=== PATIENT | male | born 1980 | race Caucasian/White ===

== ENCOUNTER 2017-03-31 19:28 | Emergency (ER) | payer OTHER ==
[2017-03-31 19:46] VITALS: PULSE 75; RESP 18
--- NOTE | 2017-03-31 20:34 | ED ---
Upper Extremity HPI - General Chief Complaint: Extremity Injury, Upper Stated Complaint: rt shoulder dislocation Time Seen by Provider: 03/31/17 20:13 Source: patient Mode of arrival: ambulatory Limitations: no limitations - History of Present Illness Initial Comments: Patient is a 37-year-old white male presenting to the emergency department with complaints of right shoulder pain after pulling weights at the [facility] at 7 PM last night. Patient states his shoulder pain originally started posteriorly in the shoulder blade but the pain has now moved anteriorly. Patient reports tingling to all his fingertips on the right hand. Patient rates pain a 7 out of 10, described as sharp, exacerbated with flexion. Patient reports previous dislocation and pinched nerve in right shoulder. No treatment prior to arrival. - Related Data Home Medications Medication Instructions Recorded Confirmed No Known Home Medications [No 03/31/17 03/31/17 Known Home Medications] Allergies Allergy/AdvReac Type Severity Reaction Status Date / Time prochlorperazine edisylate Allergy Unknown Verified 03/31/17 20:03 [From Compazine] prochlorperazine maleate Allergy Unknown Verified 03/31/17 20:03 [From Compazine] Review of Systems ROS Statement: Those systems with pertinent positive or pertinent negative responses have been documented in the HPI. ROS Other: All systems not noted in ROS Statement are negative. Past Medical History Past Medical History: No Reported History History of Any Multi-Drug Resistant Organisms: None Reported Past Surgical History: No Surgical Hx Reported, Hernia Repair, Orthopedic Surgery Additional Past Surgical History / Comment(s): Terrets syndrome Past Psychological History: No Psychological Hx Reported Smoking Status: Former smoker Past Alcohol Use History: None Reported Past Drug Use History: None Reported General Exam Limitations: no limitations General appearance: alert, in no apparent distress Head exam: Present: atraumatic, normocephalic, normal inspection Eye exam: Present: normal appearance, PERRL ENT exam: Present: normal exam, normal oropharynx, mucous membranes moist, normal external ear exam Neck exam: Present: normal inspection, full ROM. Absent: tenderness, meningismus, lymphadenopathy Respiratory exam: Present: normal lung sounds bilaterally. Absent: respiratory distress, wheezes, rales, rhonchi, stridor Cardiovascular Exam: Present: regular rate, normal rhythm, normal heart sounds. Absent: systolic murmur GI/Abdominal exam: Present: soft, normal bowel sounds. Absent: distended, tenderness, guarding, rebound, rigid Right Shoulder Exam: Present: normal inspection. Absent: full ROM (Decreased range of motion with extension.), tenderness, swelling, laceration, ecchymosis, tenderness over AC joint Upper Arm exam: Present: normal inspection, full ROM. Absent: tenderness, swelling Elbow exam: Present: normal inspection, full ROM. Absent: tenderness, swelling Forearm Wrist exam: Present: normal inspection, full ROM. Absent: tenderness, swelling Hand Wrist exam: Present: normal inspection, full ROM. Absent: tenderness, swelling Neuro motor exam: Present: wrist extension intact, thumb opposition intact, thumb IP flexion intact, thumb adduction intact, fingers 2-5 abduction intact Neurosensory exam: Present: 2-point discrimination, radial nerve intact, ulnar nerve intact, median nerve intact Vascular: Present: vascular compromise, normal capillary refill, radial pulse, brachial pulse, ulnar pulse Back exam: Present: normal inspection, full ROM. Absent: tenderness, CVA tenderness (R), CVA tenderness (L), paraspinal tenderness, vertebral tenderness Neurological exam: Present: alert, oriented X3, normal gait, other (No focal deficits noted) Psychiatric exam: Present: normal affect, normal mood Skin exam: Present: warm, dry, intact, normal color Course Vital Signs 03/31/17 19:44 Temperature 97.5 F L Pulse Rate 75 Respiratory 18 Rate Blood Pressure 136/82 O2 Sat by Pulse 96 Oximetry Medical Decision Making - Medical Decision Making Left shoulder sprain. X-ray of left shoulder negative for dislocation or fracture. Patient instructed to follow-up with orthopedic service if pain persists. Patient agrees with treatment plan. Discharge instructions and return parameters reviewed. - Radiology Data Radiology results: report reviewed X-ray right shoulder: No fracture or dislocation. Joint spaces are normal. No pathologic calcifications. As read by radiologist Dr. Peña. Disposition Clinical Impression: Strain of shoulder Disposition: HOME SELF-CARE Condition: Good Instructions: Shoulder Sprain (ED) Additional Instructions: Continue Motrin and Tylenol for pain. Follow-up with orthopedic surgeon if shoulder pain persists. Follow-up with primary care provider as directed. Please return to the emergency department with any new or worsening symptoms. Referrals: None,Stated [Primary Care Provider] - 1-2 days Naeem Brown MD [Medical Doctor] - 1-2 days (Follow-up if shoulder pain persists.) Time of Disposition: 21:12
[2017-03-31] MEDS: IBUPROFEN 800 MG TAB PO STA (20:41)
--- NOTE | 2017-03-31 21:01 | XR ---
EXAMINATION TYPE: XR shoulder complete RT DATE OF EXAM: 03/31/2017 COMPARISON: NONE HISTORY: Pain TECHNIQUE: 3 views FINDINGS: I see no fracture nor dislocation. Joint spaces are normal. There are no pathologic calcifi cations. IMPRESSION: Negative right shoulder exam.
[2017-03-31 21:35] VITALS: BP 135/84; TEMP 98.1
== END 2017-03-31 21:35 | disposition home or self-care (01) ==
LOC: EC 19:28
DX: S46.911A Strain of unspecified muscle, fascia and tendon at shoulder and upper arm level, right arm, initial encounter (principal); Z87.891 Personal history of nicotine dependence; Z88.8 Allergy status to other drugs, medicaments and biological substances; X50.1XXA Overexertion from prolonged static or awkward postures, initial encounter; Y92.89 Other specified places as the place of occurrence of the external cause; Y93.B2 Activity, push-ups, pull-ups, sit-ups
CPT/HCPCS: 99283

== ENCOUNTER 2020-05-16 13:02 | Emergency (ER) | payer BC ==
[2020-05-16 13:13] VITALS: RESP 16
--- NOTE | 2020-05-16 13:23 | ED ---
Anxiety HPI - General Chief Complaint: Anxiety Stated Complaint: back pain Time Seen by Provider: 05/16/20 13:15 Source: patient, RN notes reviewed, old records reviewed Mode of arrival: ambulatory - History of Present Illness Initial Comments: This is a 40-year-old male DF for evaluation of severe anxiety reaction, patient admits to significant anxiety which I homicidal or suicidal thoughts no recent drug or alcohol abuse. Patient does have history of opiate addiction pill addiction and recently stopped Suboxone patient having difficulty with withdrawal MD Complaint: anxiety, heart racing, shortness of breath -: days(s) Symptoms: palpitations, perioral numbness/tingling Place: home Previous History of Same: Yes Severity: moderate Quality: worsening Provoking factors: emotional stress, medication change Improves With: nothing Worsens With: nothing Associated symptoms: palpitations - Related Data Home Medications: Home Medications Medication Instructions Recorded Confirmed Ibuprofen [Motrin] 800 mg PO Q8H PRN 05/16/20 05/16/20 Testosterone Cypionate 100 mg IM Q14D 05/16/20 05/16/20 [Depo-Testosterone] Previous Rx's Medication Instructions Recorded LORazepam [Ativan] 1 mg PO TID PRN 3 Days #9 tab 05/16/20 Allergies/Adverse Reactions: Allergies Allergy/AdvReac Type Severity Reaction Status Date / Time prochlorperazine edisylate Allergy Unknown Verified 05/16/20 13:55 [From Compazine] prochlorperazine maleate Allergy Unknown Verified 05/16/20 13:55 [From Compazine] Review of Systems ROS Statement: Those systems with pertinent positive or pertinent negative responses have been documented in the HPI. ROS Other: All systems not noted in ROS Statement are negative. Past Medical History Past Medical History: No Reported History History of Any Multi-Drug Resistant Organisms: None Reported Past Surgical History: No Surgical Hx Reported, Hernia Repair, Orthopedic Surgery Additional Past Surgical History / Comment(s): Terrets syndrome Past Psychological History: No Psychological Hx Reported Past Alcohol Use History: None Reported Past Drug Use History: None Reported General Exam Limitations: no limitations General appearance: alert, in no apparent distress, anxious Head exam: Present: atraumatic, normocephalic, normal inspection Eye exam: Present: normal appearance, PERRL, EOMI. Absent: scleral icterus, conjunctival injection, periorbital swelling ENT exam: Present: normal exam, mucous membranes moist Neck exam: Present: normal inspection. Absent: tenderness, meningismus, lymphadenopathy Respiratory exam: Present: normal lung sounds bilaterally. Absent: respiratory distress, wheezes, rales, rhonchi, stridor Cardiovascular Exam: Present: regular rate, normal rhythm, normal heart sounds. Absent: systolic murmur, diastolic murmur, rubs, gallop, clicks GI/Abdominal exam: Present: soft, normal bowel sounds. Absent: distended, tenderness, guarding, rebound, rigid Extremities exam: Present: normal inspection, full ROM, normal capillary refill. Absent: tenderness, pedal edema, joint swelling, calf tenderness Back exam: Present: normal inspection Neurological exam: Present: alert, oriented X3, CN II-XII intact Psychiatric exam: Present: normal affect, normal mood Skin exam: Present: warm, dry, intact, normal color. Absent: rash Course Vital Signs 05/16/20 05/16/20 13:09 16:07 Temperature 98.1 F 97.8 F Pulse Rate 118 H 79 Respiratory 16 16 Rate Blood Pressure 149/88 148/79 O2 Sat by Pulse 97 98 Oximetry - Reevaluation(s) Reevaluation #1: Medical record is reviewed Symptoms are significantly improving, resolved Spoke with patient regarding symptoms and findings, questions answered Patient feels good for discharge home Medical Decision Making - Medical Decision Making 40 male DF for evaluation of Suboxone withdrawal and anxiety reaction secondary to this. Patient's not homicidal or suicidal, and comfortable improved symptoms here in the ER Disposition Clinical Impression: Acute anxiety Disposition: HOME SELF-CARE Condition: Good Instructions (If sedation given, give patient instructions): Generalized Anxiety Disorder (ED) Prescriptions: LORazepam [Ativan] 1 mg PO TID PRN 3 Days #9 tab PRN Reason: Agitation Is patient prescribed a controlled substance at d/c from ED?: Yes When asked, does pt state using other controlled substances?: No If prescribed controlled substance>3 days was MAPS reviewed?: Prescribed <3 Days If opioid is for acute pain is fill amount 7 days or less?: No If Rx opioid, was Start Talking consent form obtained?: No Referrals: Tony Aguilar MD [Primary Care Provider] - 1-2 days
[2020-05-16] MEDS ORDERED: diazePAM 5 MG TAB PO STA ×2 (13:33→13:48)
[2020-05-16] MEDS ORDERED: ONDANSETRON ODT 4 MG TAB PO STA (13:33)
[2020-05-16] MEDS ORDERED: cloNIDine 0.3 MG/24HR PATCH TRANSDERM STA (13:33)
[2020-05-16] MEDS ORDERED: LORazepam 1 MG TAB PO STA ×2 (15:00→15:46)
[2020-05-16 16:08] VITALS: BP 148/79; PULSE 79; TEMP 97.8
== END 2020-05-16 16:07 | disposition home or self-care (01) ==
LOC: EC 13:02
DX: F41.9 Anxiety disorder, unspecified (principal); Z88.8 Allergy status to other drugs, medicaments and biological substances
CPT/HCPCS: 99283

== ENCOUNTER 2021-04-21 14:46 | Inpatient (IN) | payer BC, OTHER ==
--- NOTE | 2021-04-21 15:17 | ED ---
General Adult HPI - General Stated complaint: EPS eval Time Seen by Provider: 04/21/21 14:46 Source: patient, RN notes reviewed, old records reviewed - History of Present Illness Initial comments: This is a 41-year-old male is brought in by the Electronic Organ Mechanic because the mother is filling out a petition the patient because she states he is making comments about him wanting to kill himself. Patient is also very paranoid according to the mother's petition. Patient himself currently denies wanting to harm himself but he does seem to be obsessed with getting a red mud thickener operator and proving that his is cheating on him. Patient keeps making mention that he has every and on his phone. Patient is asking to please obstacle few his phone so that it can make sound are him. Patient denies any drug or alcohol use. also wrote on the petition that the patient has been threatening to kill himself with a hunting knife. - Related Data Home Medications Medication Instructions Recorded Confirmed HYDROcodone/APAP 5-325MG [Ivor 1 tab PO TID PRN 04/21/21 04/21/21 5-325] Allergies Allergy/AdvReac Type Severity Reaction Status Date / Time prochlorperazine edisylate Allergy Unknown Verified 04/21/21 16:24 [From Compazine] prochlorperazine maleate Allergy Unknown Verified 04/21/21 16:24 [From Compazine] Review of Systems ROS Statement: Those systems with pertinent positive or pertinent negative responses have been documented in the HPI. ROS Other: All systems not noted in ROS Statement are negative. Past Medical History Past Medical History: No Reported History History of Any Multi-Drug Resistant Organisms: None Reported Past Surgical History: No Surgical Hx Reported, Hernia Repair, Orthopedic Surgery Additional Past Surgical History / Comment(s): Terrets syndrome Past Psychological History: No Psychological Hx Reported Past Alcohol Use History: None Reported Past Drug Use History: None Reported General Exam - General Exam Comments Initial Comments: GENERAL: Patient is well-developed and well-nourished. Patient is nontoxic and well- hydrated and is in no acute distress. Patient is upset because the clearance center manager brought him here but aside from that he is cooperative ENT: Neck is soft and supple. No significant lymphadenopathy is noted. Oropharynx is clear. Moist mucous membranes. Neck has full range of motion without eliciting any pain. There is no thyroid enlargement and no masses were felt. EYES: The sclera were anicteric and conjunctiva were pink and moist. Extraocular movements were intact and pupils were equal round and reactive to light. Eyelids were unremarkable. PULMONARY: Unlabored respirations. Good breath sounds bilaterally. No audible rales rhonchi or wheezing was noted. CARDIOVASCULAR: There is a regular rate and rhythm without any murmurs gallops or rubs. ABDOMEN: Soft and nontender with normal bowel sounds. SKIN: Skin is clear with no lesions or rashes and otherwise unremarkable. NEUROLOGIC: Patient is alert and oriented x3. Cranial nerves II through XII are grossly intact. Motor and sensory are also intact. Normal speech, volume and content. Symmetrical smile. MUSCULOSKELETAL: Normal extremities with adequate strength and full range of motion. LYMPHATICS: No significant lymphadenopathy is noted PSYCHIATRIC: Patient does seem to be obsessed with getting a red mud thickener operator and getting his phone so he can prove with video evidence that he has never said any of these things and that his is cheating on him. Patient denies suicidal or homicidal ideations. Patient denies any drug use. Course Vital Signs 04/21/21 14:59 Temperature 98.7 F Pulse Rate 107 H Respiratory 20 Rate Blood Pressure 177/106 O2 Sat by Pulse 98 Oximetry Medical Decision Making - Medical Decision Making EPS evaluated the patient and determined the patient needed to be admitted I filled out a clinical certification at the patient admitted. Disposition Clinical Impression: Psychosis, Suicidal ideation Disposition: ADMITTED IP TO THIS [facility] Referrals: Tony Aguilar MD [Primary Care Provider] - 1-2 days Time of Disposition: 17:26
[2021-04-21] MEDS ORDERED: MAG HYDROX/AL HYDROX/SIMETH 30 ML CUP PO PRN (18:03)
[2021-04-21] MEDS ORDERED: MAGNESIUM HYDROXIDE 2,400 MG/10 ML CUP PO PRN (18:03)
[2021-04-21] MEDS ORDERED: LORazepam 2 MG/ML INJ IM PRN (18:04)
[2021-04-21] MEDS ORDERED: HALOPERIDOL LACTATE 5 MG/ML 1 ML VIAL IM PRN (18:05)
[2021-04-21] MEDS ORDERED: haloperidoL 5 MG TAB PO PRN (18:05)
[2021-04-21] MEDS: LORazepam 1 MG TAB PO PRN (18:20)
[2021-04-21] MEDS: NICOTINE 14MG/24HR PATCH TRANSDERM SCH (18:26)
[2021-04-22] MEDS: LORazepam 1 MG TAB PO PRN ×3 (05:55→22:33)
[2021-04-22] MEDS: ACETAMINOPHEN TAB 325 MG TAB PO PRN ×3 (05:55→20:23)
[2021-04-22] MEDS: NICOTINE 14MG/24HR PATCH TRANSDERM SCH (08:40)
--- NOTE | 2021-04-22 11:43 | P.HP ---
Psychiatric H&P - . H&P Date: 04/22/21 History & Physical: Allergies Allergy/AdvReac Type Severity Reaction Status Date / Time prochlorperazine edisylate Allergy Unknown Verified 04/21/21 18:45 From Compazine prochlorperazine maleate Allergy Unknown Verified 04/21/21 18:45 From Compazine Vital Signs Temp 97.7 F 04/22/21 06:41 Pulse 107 H 04/22/21 06:41 Resp 16 04/22/21 06:41 BP 131/102 04/22/21 06:41 Pulse Ox 98 04/21/21 14:59 Intake & Output 04/21/21 04/22/21 04/22/21 18:59 06:59 18:59 Weight 102.4 kg 04/22/21 11:33 IDENTIFYING DATA: Patient is a 41-year-old male who is currently and staying at a nearby hotel and has 2 kids. He currently works for a [employer] company. HPI: Patient presented to the hospital yesterday on petition by his mother. According to petition mother had claimed that "he believes people are spying on him. People are to get him. He told me today that if I didn't believe him she was going to kill himself. He thinks I am having an affair with people at work and has threatened to kill himself with a hunting knife and a couple days ago said he would end it all because he couldn't take anymore". Patient was seen wandering the hallways and agreeable to speak to senior mortgage underwriter in the office. 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 He claims the several weeks ago he noticed "something strange" on a security camera and claims that he believes that his has been cheating on him with his patton who is living in his basement. He states that she goes into a room and shut her phone and then comes out of the room and has been denying it. He claims that he believes this is true and has contacted a research and insights executive sent and the foot age. He was very guarded and secretive about his plan. He states that he left his house with his 7 days ago and has been living in a hotel. He claims that his life is "putting me in here so she can win and the divorce". He is denying any depression at this time admits to some anxiety. He denies any racing thoughts. He states that he is sleeping approximately 6-7 hours a night. He did not give a urine drug screen however did claim that he was using some drugs several days ago however does not know what he used. Patient denies any suicidal or homicidal ideations intent or plan. At this time patient denies any auditory or visual hallucinations. Patient denies any flight of ideas racing thoughts and increased in goal directed behavior. PAST PSYCHIATRIC HISTORY: Patient states that he has no significant psychiatric history. Patient denies being on any psychiatric medications. Patient denies any previous psychiatric hospitalizations. Patient denies any psychiatric outpatient follow-up. Patient denies any history of suicide attempts in the past. PMH: Tourette syndrome ALLERGIES: as per EMR CHEMICAL DEPENDENCY HISTORY: as per HPI FAMILY PSYCHIATRIC/SUBSTANCE USE HISTORY: denies SOCIAL HISTORY: Patient was born and raised in [facility]. He states that he completed high school. He claims they deny any legal history. He states that he currently is staying at a hotel however is and has 2 kids. He currently works at a [employer]. MENTAL STATUS EXAM: General Appearance: Patient appears to be well-built stated age is alert, suspicious, argumentative. Patient appears to have poor hygiene and grooming. Behavior: Patient is seated without any agitated behavior. And irritable and argumentative. Paranoid Speech: Patient's speech is fluent and nonpressured. Mood/Affect: Patient reports their mood is ok, affect is congruent and constricted. Suicidality/Homicidality: Patient denies having any homicidal ideation intent or plan. Denies any suicidal ideations intent or plan Perceptions: Patient denies any visual hallucinations and denies any auditory hallucinations Though content/process: Patient is preoccupied with his cheating on him. Minimizing his symptoms. Endorsing significant paranoia. Memory and concentration: AOX3, grossly intact for the purposes of this session. Can spell "WORLD" backwards Judgment and insight: poor STRENGTHS/WEAKNESSES: strength is that patient is resilient. Weakness is that patient has poor judgment and is impulsive INTELLECT: average IMPRESSIONS: Psychosis unspecified, rule out secondary to substance use versus delusional disorder nicotine dependence PLAN: -Patient is admitted under involuntary status to [facility] for stabilization of psychiatric symptoms and safety. Patient has not signed adult voluntary form and medication consent and is placed in patient's chart. A second certification was completed and along with petition will be filed for court. -Medications : Will start patient on Risperdal 0.5 mg twice a day for psychosis/paranoia. -Ativan and Haldol PRN for agitation/aggression -Patient was counselled on substance abuse and desired to cut back on use -Patient was informed of the risks, benefits and side effects of the medication and patient verbally consented to taking the medications. Patient signed med consent form and was placed in chart. -Internal Medicine consult to perform medical evaluation and physical. -NRT - nicotine patch -SW on board for discharge planning. Encourage patient to participate in groups to work on coping skills. Will await deferral and court date. 04/22/21 11:43
[2021-04-22] MEDS: risperiDONE 0.5 MG TAB PO SCH ×2 (12:57→20:23)
[2021-04-22] MEDS: HYDROcodone/APAP 5-325MG 1 EACH TAB PO PRN (22:34)
[2021-04-22 22:57] LABS: Amorphous Sediment,Urine Few /hpf; Appearance,Urine Cloudy (Clear); Bilirubin,Urine Negative (Negative); Blood,Urine Negative (Negative); Calcium Oxalate Crystals,Urine Moderate /hpf; Color,Urine Yellow; Glucose,Urine (UA) Negative (Negative); Hyaline Casts,Urine 2 /lpf (0-2); Ketones,Urine Negative (Negative); Leukocyte Esterase,Urine Negative (Negative); Mucus,Urine Many /hpf; Nitrite,Urine Negative (Negative); Protein,Urine 1+ (Negative); RBC,Urine 2 /hpf (0-5); Specific Gravity,Urine 1.024 (1.001-1.035); WBC,Urine 8 /hpf (0-5)
[2021-04-22 23:00] LABS: Amphetamine Screen,Urine Detected (NotDetected); Barbiturate Screen,Urine Not Detected (NotDetected); Benzodiazepines Screen,Urine Detected (NotDetected); Cocaine Screen,Urine Not Detected (NotDetected); Methadone Screen, Urine Not Detected (NotDetected); Opiate Screen,Urine Not Detected (NotDetected); Oxycodone Screen, Urine Not Detected (NotDetected); Phencyclidine Screen,Urine Not Detected (NotDetected); Tricyclic Antidepressant,Urine Not Detected (NotDetected); Urn Cannabinoid Scrn Detected (NotDetected)
[2021-04-23] MEDS: risperiDONE 0.5 MG TAB PO SCH (08:00)
[2021-04-23] MEDS: NICOTINE 14MG/24HR PATCH TRANSDERM SCH (08:00)
[2021-04-23] MEDS: HYDROcodone/APAP 5-325MG 1 EACH TAB PO PRN ×2 (08:03→16:07)
[2021-04-23] MEDS: LORazepam 1 MG TAB PO PRN ×3 (08:03→21:06)
--- NOTE | 2021-04-23 09:51 | P.PN ---
Progress Note - Text Progress Note Date: 04/23/21 Interval History: Patient was seen lying in his bed this morning and was directable and agreeable to speak with music writer in the office. He appears to be mildly less paranoid today however continues to have very poor insight into his condition. He states that he did take his medications yesterday and feels "not well". He denies any depression or anxiety today. He claims that he's been speaking of his life. He was demanding discharge today and claims that "I'm in a drop everything if he just let me go". He states that he wants to talk to his cousin who is an FBI agent over the phone. He states that the phones are not working and appeared to be frustrated. He continues to have a poor impulse control. Security Management Specialist reviewed the UDS which was positive for benzodiazepines, methamphetamine and marijuana and patient denied using all of them except for methamphetamines and claims that he only used it twice with his friend. He states that his friend injected him with it. States that he is able to sleep throughout the night. At this time patient denies any suicidal or homical ideations, intent or plan. Patient denies any auditory, visual hallucinations. Patient denies any side effects from the medications and has been compliant with meds. Mental Status Exam: General Appearance: Patient appears to be well-built stated age is alert, suspicious, argumentative. Patient appears to have poor hygiene and grooming. Behavior: Patient is seated without any agitated behavior. irritable and argumentative. Paranoid, improving mildly Speech: Patient's speech is fluent and nonpressured. Mood/Affect: Patient reports their mood is ok, affect is incongruent and constricted. Suicidality/Homicidality: Patient denies having any homicidal ideation intent or plan. Denies any suicidal ideations intent or plan Perceptions: Patient denies any visual hallucinations and denies any auditory hallucinations Though content/process: Patient is preoccupied with his cheating on him. Minimizing his symptoms. Endorsing significant paranoia. Focused on discharge. Memory and concentration: AOX3, grossly intact for the purposes of this session Judgment and insight: poor, improving mildly Assessment Psychosis unspecified, rule out secondary to substance use versus delusional disorder nicotine dependence Plan: -Patient continues to meet criteria for inpatient psychiatric admission for symptom stabilization and safety. Patient has not signed adult voluntary form and medication consent and was placed in patient's chart. -Medications: Discontinued Risperdal and switched to paliperidone 3 mg daily at bedtime for psychosis/paranoia. -When necessary Ativan and Haldol for agitation/aggression. -NRT - nicotine patch -SW on board for discharge planning. Encouraged the patient to participate in milieu. Currently awaiting deferral with prosecuting attorney and court date.
[2021-04-23 13:11] LABS: Basophils # (A) 0.1 k/uL (0-0.2); Basophils % (A) 0 %; Eosinophils # (A) 0.1 k/uL (0-0.7); Eosinophils % (A) 1 %; HCT 46.5 % (39.0-53.0); HGB 16.5 gm/dL (13.0-17.5); Lymphocytes # (A) 1.3 k/uL (1.0-4.8); Lymphocytes % (A) 12 %; MCH 31.3 pg (25.0-35.0); MCHC 35.4 g/dL (31.0-37.0); MCV 88.3 fL (80.0-100.0); Mean Platelet Volume 7.5; Monocytes # (A) 0.5 k/uL (0-1.0); Monocytes % (A) 4 %; Neutrophils # (A) 9.4 k/uL (1.3-7.7); Neutrophils % (A) 82 %; Platelet Count 200 k/uL (150-450); RBC 5.27 m/uL (4.30-5.90); RDW 12.2 % (11.5-15.5); WBC 11.5 k/uL (3.8-10.6)
[2021-04-23 13:23] LABS: ALT 29 U/L (4-49); AST 22 U/L (17-59); African American GFR (CKD) >90 (>60 ml/min/1.73 sqM); Albumin 4.3 g/dL (3.5-5.0); Alkaline Phosphatase 99 U/L (38-126); Anion Gap 8 mmol/L; Blood Urea Nitrogen 17 mg/dL (9-20); Calcium 9.3 mg/dL (8.4-10.2); Carbon Dioxide 26 mmol/L (22-30); Chloride 105 mmol/L (98-107); Glucose 110 mg/dL (74-99); Lipase 126 U/L (23-300); Non-African American GFR(CKD) >90 (>60 ml/min/1.73 sqM); Potassium 4.2 mmol/L (3.5-5.1); Sodium 139 mmol/L (137-145); Total Bilirubin 1.3 mg/dL (0.2-1.3); Total Protein 6.9 g/dL (6.3-8.2)
[2021-04-23] MEDS: ACETAMINOPHEN TAB 325 MG TAB PO PRN (13:50)
--- NOTE | 2021-04-23 16:45 | CT ---
EXAMINATION TYPE: CT abdomen pelvis w con DATE OF EXAM: 04/23/2021 COMPARISON: None HISTORY: Abdominal/back pain CT DLP: 1412.20 mGycm Automated exposure control for dose reduction was used. CONTRAST: Performed with IV Contrast, patient injected with 100 mL of Isovue 300. Images obtained from the diaphragm to the floor the pelvis with IV contrast. Lung bases are clear of infiltrate. There is no pleural effusion. Heart size is normal. There is no p ericardial effusion. Liver spleen pancreas stomach gallbladder appear intact. The bile ducts are not dilated. There is no adrenal mass. Kidneys show satisfactory contrast opacification. There is no hydronephrosi s. Ureters are not dilated. Delayed images show normal renal excretion. There is no retroperitoneal a denopathy. Appendix is posterior and appears normal. The bladder distends smoothly. There is no ingui nal hernia. There is no free fluid in the pelvis. There are multiple sigmoid diverticula. There is fat stranding and minimal fluid in the left paracoli c gutter. There is no evidence of a bowel obstruction. There is no sign of free air. There is no ascites. The lumbar vertebra have normal alignment. There is narrowing of L5-S1 disc space. The posterior [place] ents are intact. There is no compression fracture. The bony pelvis is intact. The hip joints are inta ct. There is no hip dysplasia. IMPRESSION: Multiple sigmoid diverticula. Fat stranding around the proximal sigmoid colon consistent with some di verticulitis. No abscess drainable fluid collection. Normal appendix.
[2021-04-23] MEDS ORDERED: PALIPERIDONE 3 MG TAB.ER.24 PO SCH (21:00)
[2021-04-23] MEDS: CIPROFLOXACIN HCL 500 MG TAB PO SCH (21:04)
[2021-04-23] MEDS: metroNIDAZOLE 500 MG TAB PO SCH (21:04)
--- NOTE | 2021-04-23 23:56 | P.MDCNMH ---
History of Present Illness H&P Date: 04/23/21 Chief Complaint: Abdominal pain 41-year-old with no significant past medical history Patient petitioned due to bizarre behavior and delusional thought, he was accusing his cheating on him, he left the house and she was worried that he is becoming suicidal so petitioned him for evaluation He denies any suicidal thoughts he does admit to feeling sad that his 's hermila ating on him and he wants to and the marriage he denies the urge to hurt anyone or hurt himself at this time He also was complaining of left lower quadrant abdominal pain yesterday was the peak when the pain was 10 out of 10 in severity he denies any urinary symptoms he denies any nausea vomiting fevers or chills but does admit to loose stools he denies any lipid bowel movement Computed tomography scan of the abdomen reported to me that showed acute diverticulitis, unable to access electronic report at this time Blood work did show leukocytosis Review of Systems Pertinent positives as noted in HPI. 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 Past Anesthesia/Blood Transfusion Reactions: No Reported Reaction Past Psychological History: No Psychological Hx Reported Smoking Status: Never smoker Past Alcohol Use History: None Reported Past Drug Use History: None Reported - Past Family History Family Family Medical History: No Reported History Medications and Allergies Home Medications Medication Instructions Recorded Confirmed Type HYDROcodone/APAP 5-325MG [[place] 1 tab PO TID PRN 04/21/21 04/21/21 History 5-325] Allergies Allergy/AdvReac Type Severity Reaction Status Date / Time prochlorperazine edisylate Allergy Unknown Verified 04/21/21 18:45 [From Compazine] prochlorperazine maleate Allergy Unknown Verified 04/21/21 18:45 [From Compazine] Physical Exam Vitals: Vital Signs Pulse Resp BP 04/23/21 13:50 108 H 135/77 04/23/21 12:25 113 H 18 137/67 04/23/21 08:00 110 H 138/92 Constitutional: No acute distress, conversant, pleasant Eyes: Anicteric sclerae, moist conjunctiva, Pupils equal round reactive to light ENMT: NC/AT Oropharynx clear, no erythema, or exudates Neck: Supple, FROM, no masses, or JVD No carotid bruits No thyromegaly Lungs: Clear to auscultation Clear to percussion Normal respiratory effort, no accessory muscle use Cardiovascular: Heart regular in rate and rhythm, No murmurs, gallops, or rubs No peripheral edema Abdominal: Soft Discomfort to palpation of the lower abdomen and left lower quadrant, no guarding, rebound or rigidity Abdomen moving with respiration Normoactive bowel sounds No hepatomegaly, No splenomegaly No palpable mass No abdominal wall hernia noted Skin: Normal temperature, tone, texture, turgor No induration No subcutaneous nodules No rash, lesions No ulcers Extremities: No digital cyanosis No clubbing Pedal pulses intact and symmetrical Radial pulses intact and symmetrical No calf tenderness Psychiatric: Alert and oriented to person, place and time Appropriate affect fair judgement Neuro Muscles Strength 5/5 in all 4 extremities Sensation to light touch grossly present throughout Cranial nerves II-XII grossly intact No focal sensory deficits Lymphatics: no palpable cervical or supraclavicular , or inguinal lymph nodes Cranial Nerve Examination - Cranial Nerves Cranial Nerve II- Optic: Intact Cranial Nerve III- Oculomotor: Intact Cranial Nerve IV- Trochlear: Intact Cranial Nerve V- Trigeminal: Intact Cranial Nerve - Abducens: Intact Cranial Nerve VII- Facial: Intact Cranial Nerve VIII- Auditory: Intact Cranial Nerve IX- Glossopharyngeal: Intact Cranial Nerve X- Vagus: Intact Cranial Nerve XI- Accessory: Intact Cranial Nerve XII- Hypoglossal: Intact Results CBC & Chem 7: 04/23/21 12:54 04/23/21 12:54 Labs: Abnormal Lab Results - Last 24 Hours (Table) 04/23/21 04/23/21 Range/Units 12:54 12:54 WBC 11.5 H (3.8-10.6) k/uL Neutrophils # 9.4 H (1.3-7.7) k/uL Glucose 110 H (74-99) mg/dL Assessment and Plan Assessment: Acute diverticulitis Patient started on Cipro and Flagyl Tylenol for fever Pain control with [place] Full liquid diet as tolerated Continue to monitor closely Continue care at mental health unit at this time Substance abuse Delusional thoughts Management per psych Thank you for allowing us to participate in the care of this patient. We will follow peripherally. Do not hesitate to contact us with questions. Someone can be reached from the [facility] hospitalist group at all hours of the day at [phone].
[2021-04-24 00:46] VITALS: BP 127/84; PULSE 107; RESP 16; TEMP 97.5
[2021-04-24] MEDS: HYDROcodone/APAP 5-325MG 1 EACH TAB PO PRN ×2 (02:53→11:49)
[2021-04-24] MEDS: LORazepam 1 MG TAB PO PRN (02:53)
[2021-04-24] MEDS: CIPROFLOXACIN HCL 500 MG TAB PO SCH (08:30)
[2021-04-24] MEDS: NICOTINE 14MG/24HR PATCH TRANSDERM SCH (08:30)
[2021-04-24] MEDS: metroNIDAZOLE 500 MG TAB PO SCH (08:30)
[2021-04-24] MEDS: ACETAMINOPHEN TAB 325 MG TAB PO PRN (08:31)
[2021-04-24] MEDS ORDERED: LORazepam 1 MG TAB PO PRN (10:07)
--- NOTE | 2021-04-24 13:55 | P.DS ---
Providers Date of admission: 04/21/21 17:34 Expected date of discharge: 04/24/21 Attending physician: Timi Hilario MD Consults: 04/21/21 18:03 Consult Physician Routine Consulting Provider: [facility] Consult Reason/Comments: H&P and medical Do you want consulting provider notified?: Already Contacted - Discharge Diagnosis(es) (1) Unspecified psychosis Current Visit: Yes Status: Acute Priority: High (2) Nicotine dependence Current Visit: Yes Status: Acute Priority: Low (3) Methamphetamine abuse Current Visit: Yes Status: Acute Priority: High (4) Cannabis use disorder, mild, abuse Current Visit: Yes Status: Acute Priority: High Hospital Course: Admission HPI: Admission note was completed by proposal lead writer] "Patient is a 41-year-old male who is currently and staying at a nearby hotel and has 2 kids. He currently works for a [employer] company. Patient presented to the hospital yesterday on petition by his mother. According to petition mother had claimed that "he believes people are spying on him. People are to get him. He told me today that if I didn't believe him she was going to kill himself. He thinks I am having an affair with people at work and has threatened to kill himself with a hunting knife and a couple days ago said he would end it all because he couldn't take anymore". Patient was seen wandering the hallways and agreeable to speak to proposal lead writer in the office. 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 He claims the several weeks ago he noticed "something strange" on a security camera and claims that he believes that his has been cheating on him with his patton who is living in his basement. He states that she goes into a room and shut her phone and then comes out of the room and has been denying it. He claims that he believes this is true and has contacted a superintendent meters sent and the foot age. He was very guarded and secretive about his plan. He states that he left his house with his 7 days ago and has been living in a hotel. He claims that his life is "putting me in here so she can win and the divorce". He is denying any depression at this time admits to some anxiety. He denies any racing thoughts. He states that he is sleeping approximately 6-7 hours a night. He did not give a urine drug screen however did claim that he was using some drugs several days ago however does not know what he used. Patient denies any suicidal or homicidal ideations intent or plan. At this time patient denies any auditory or visual hallucinations. Patient denies any flight of ideas racing thoughts and increased in goal directed behavior." Hospital course: Upon admission to the unit patient was initially delusional, paranoid and bizarrend others however with time and treatment he got along well with other patients on the unit and followed unit protocol. Patient was compliant with the medications and denied any side effects throughout hospital course. Patient was started on paliperidone 3 mg daily at bedtime for psychosis/paranoia. Patient spoke of [hi] stressors and engaged in therapy both group and individual. Patient was also seen by medical team for history and physical exam. Patient had a computed tomography scan performed of his abdomen and pelvis on 04/23 for acute pain and was found to have evidence of diverticulitis. Medicine had evaluated patient and started him on ciprofloxacin and Flagyl for treatment. Throughout the course of the hospitalization patient gradually improved with regards to [mood, psychosis/paranoia, anxiety], sleep and became more future oriented with improved insight and judgment. On the day of discharge patient denied any suicidal or homicidal ideations intent or plan denied any auditory or visual hallucinations. Patient endorsed wanting to live for [his health and family.] The patient denied any access to guns or weapons. Patient denied any paranoia and did not endorse any delusions. Patient does have a significant history of substance abuse [and] was counseled on abstaining from all substances including alcohol and marijuana. [Patient was offered however declined inpatient substance-abuse rehab.] care. Prior to discharge, proposal lead writer spoke with patient's mother Susanna over the phone at [phone] expressed her concerns about patient's substance use and his mental health condition and questions and concerns were addressed and answered about his treatment plan and they deferral process and he will be staying with her upon discharge. Confirmed that they are now guns or weapons in the house. Industrial Automation Specialist also spoke with patient's Izabela [phone] to states that she is concerned about patient's well-being and substance use and questions and concerns were addressed and answered. Mental status exam: General Appearance: Patient appears to be well-built, stated age is alert, pleasant, and cooperative. Patient is in no acute distress and has improved hygiene and grooming Behavior: Patient is calmly seated without any agitated behavior. Speech: Patient's speech is fluent and nonpressured. Mood/Affect: Patient reports their mood is "ok", affect is congruent Suicidality/Homicidality: Patient denies having any suicidal or homicidal ideation intent or plan. Perceptions: Patient denies any auditory or visual hallucinations. Though content/process: There is no evidence of any delusional thought content and thought process is linear and goal-directed. Memory and concentration: AOX3, grossly intact for the purposes of this session. Can spell "WORLD" backwards correctly. Judgment and insight: [chronically poor, however has] improved with guarded prognosis Impression: Psychosis unspecified, likely secondary to polysubstance abuse Methamphetamine abuse Cannabis use disorder Nicotine dependence Plan: -Continue with discharge today as patient has improved and stabilized psychiatrically and is not currently an imminent threat to [himself] and/or others. [Patient will remain at chronically elevated risk for harm to self and/or others due to his impulsivity and polysubstance abuse.] -Continue medications: Paliperidone by mouth 3 mg daily at bedtime for psycho sis/paranoia. This can be examined by his outpatient psychiatrist to see if it can be titrated down/off. -Patient was counseled on the need for medication compliance and appropriate follow-up at mental health and also primary care for medical issues. Patient verbalized understanding and agreed. -Social work to [arrange for and conduct family meeting to ensure safety upon discharge and answer any questions/concerns.] Industrial Automation Specialist spoke with patient's and mother over the phone prior to discharge, see above for details. Social work also to arrange for patients follow up appointments [with [facility]] for psychiatric care along with follow up with primary care provider. -Patient counseled on abstaining from recreational drugs and marijuana and alcohol. Was informed/educated on the adverse effects on their physical and mental health. [Patient verbally agreed and understood]. [Patient was offered substance abuse treatment however declined at this time.] -Patient was instructed to return to the hospital or seek immediate medical care if their psychiatric or medical symptoms do worsen or reoccur. Allergies Allergy/AdvReac Type Severity Reaction Status Date / Time prochlorperazine edisylate Allergy Unknown Verified 04/21/21 18:45 [From Compazine] prochlorperazine maleate Allergy Unknown Verified 04/21/21 18:45 [From Compazine] Laboratory Results WBC 11.5 k/uL (3.8-10.6) H 04/23/21 12:54 RBC 5.27 m/uL (4.30-5.90) 04/23/21 12:54 Hgb 16.5 gm/dL (13.0-17.5) 04/23/21 12:54 Hct 46.5 % (39.0-53.0) 04/23/21 12:54 MCV 88.3 fL (80.0-100.0) 04/23/21 12:54 MCH 31.3 pg (25.0-35.0) 04/23/21 12:54 MCHC 35.4 g/dL (31.0-37.0) 04/23/21 12:54 RDW 12.2 % (11.5-15.5) 04/23/21 12:54 Plt Count 200 k/uL (150-450) 04/23/21 12:54 MPV 7.5 04/23/21 12:54 Neutrophils % 82 % 04/23/21 12:54 Lymphocytes % 12 % 04/23/21 12:54 Monocytes % 4 % 04/23/21 12:54 Eosinophils % 1 % 04/23/21 12:54 Basophils % 0 % 04/23/21 12:54 Neutrophils # 9.4 k/uL (1.3-7.7) H 04/23/21 12:54 Lymphocytes # 1.3 k/uL (1.0-4.8) 04/23/21 12:54 Monocytes # 0.5 k/uL (0-1.0) 04/23/21 12:54 Eosinophils # 0.1 k/uL (0-0.7) 04/23/21 12:54 Basophils # 0.1 k/uL (0-0.2) 04/23/21 12:54 Sodium 139 mmol/L (137-145) 04/23/21 12:54 Potassium 4.2 mmol/L (3.5-5.1) 04/23/21 12:54 Chloride 105 mmol/L (98-107) 04/23/21 12:54 Carbon Dioxide 26 mmol/L (22-30) 04/23/21 12:54 Anion Gap 8 mmol/L 04/23/21 12:54 BUN 17 mg/dL (9-20) 04/23/21 12:54 Creatinine 0.87 mg/dL (0.66-1.25) 04/23/21 12:54 Est GFR (CKD-EPI)AfAm >90 (>60 ml/min/1.73 sqM) 04/23/21 12:54 Est GFR (CKD-EPI)NonAf >90 (>60 ml/min/1.73 sqM) 04/23/21 12:54 Glucose 110 mg/dL (74-99) H 04/23/21 12:54 Calcium 9.3 mg/dL (8.4-10.2) 04/23/21 12:54 Total Bilirubin 1.3 mg/dL (0.2-1.3) 04/23/21 12:54 AST 22 U/L (17-59) 04/23/21 12:54 ALT 29 U/L (4-49) 04/23/21 12:54 Alkaline Phosphatase 99 U/L (38-126) 04/23/21 12:54 Total Protein 6.9 g/dL (6.3-8.2) 04/23/21 12:54 Albumin 4.3 g/dL (3.5-5.0) 04/23/21 12:54 Lipase 126 U/L (23-300) 04/23/21 12:54 Urine Color Yellow 04/22/21 22:30 Urine Appearance Cloudy (Clear) 04/22/21 22:30 Urine pH 7.0 (5.0-8.0) 04/22/21 22:30 Ur Specific [place] 1.024 (1.001-1.035) 04/22/21 22:30 Urine Protein 1+ (Negative) H 04/22/21 22:30 Urine Glucose (UA) Negative (Negative) 04/22/21 22:30 Urine Ketones Negative (Negative) 04/22/21 22:30 Urine Blood Negative (Negative) 04/22/21 22:30 Urine Nitrite Negative (Negative) 04/22/21 22:30 Urine Bilirubin Negative (Negative) 04/22/21 22:30 Urine Urobilinogen 3.0 mg/dL (<2.0) 04/22/21 22:30 Ur Leukocyte Esterase Negative (Negative) 04/22/21 22:30 Urine RBC 2 /hpf (0-5) 04/22/21 22:30 Urine WBC 8 /hpf (0-5) H 04/22/21 22:30 Calcium Oxalate Crystal Moderate /hpf (None) H 04/22/21 22:30 Amorphous Sediment Few /hpf (None) H 04/22/21 22:30 Hyaline Casts 2 /lpf (0-2) 04/22/21 22:30 Urine Mucus Many /hpf (None) H 04/22/21 22:30 Urine Opiates Screen Not Detected (NotDetected) 04/22/21 22:32 Ur Oxycodone Screen Not Detected (NotDetected) 04/22/21 22:32 Urine Methadone Screen Not Detected (NotDetected) 04/22/21 22:32 Ur Propoxyphene Screen Not Detected (NotDetected) 04/22/21 22:32 Ur Barbiturates Screen Not Detected (NotDetected) 04/22/21 22:32 U Tricyclic Antidepress Not Detected (NotDetected) 04/22/21 22:32 Ur Phencyclidine Scrn Not Detected (NotDetected) 04/22/21 22:32 Ur Amphetamines Screen Detected (NotDetected) H 04/22/21 22:32 U Methamphetamines Scrn Detected (NotDetected) H 04/22/21 22:32 U Benzodiazepines Scrn Detected (NotDetected) H 04/22/21 22:32 Urine Cocaine Screen Not Detected (NotDetected) 04/22/21 22:32 U Marijuana (THC) Screen Detected (NotDetected) H 04/22/21 22:32 Vital Signs Temp 97.5 F L 04/24/21 00:45 Pulse 107 H 04/24/21 00:45 Resp 16 04/24/21 00:45 BP 127/84 04/24/21 00:45 Pulse Ox 98 04/21/21 14:59 Patient Condition at Discharge: Stable Plan - Discharge Summary Discharge Rx Participant: No New Discharge Prescriptions: New Ciprofloxacin HCl [Cipro] 500 mg PO BID 7 Days tab metroNIDAZOLE [Flagyl] 500 mg PO TID 7 Days tab Nicotine 14Mg/24Hr Patch [Habitrol] 1 patch TRANSDERM DAILY 14 Days patch Paliperidone [Invega] 3 mg PO HS 30 Days tab.er.24 Acetaminophen Tab [Tylenol] 650 mg PO Q4HR PRN tab PRN Reason: Pain/Discomfort Continue HYDROcodone/APAP 5-325MG [[place] 5-325] 1 tab PO TID PRN PRN Reason: Pain Discharge Medication List HYDROcodone/APAP 5-325MG [[place] 5-325] 1 tab PO TID PRN 04/21/21 [History] Acetaminophen Tab [Tylenol] 650 mg PO Q4HR PRN tab 04/24/21 [Rx] Ciprofloxacin HCl [Cipro] 500 mg PO BID 7 Days tab 04/24/21 [Rx] Nicotine 14Mg/24Hr Patch [Habitrol] 1 patch TRANSDERM DAILY 14 Days patch 04/24/21 [Rx] Paliperidone [Invega] 3 mg PO HS 30 Days tab.er.24 04/24/21 [Rx] metroNIDAZOLE [Flagyl] 500 mg PO TID 7 Days tab 04/24/21 [Rx] Follow up Appointment(s)/Referral(s): Other, other [Other] - 04/27/21 9:30 am Tony Aguilar MD [STAFF PHYSICIAN] - 1-2 days Activity/Diet/Wound Care/Special Instructions: Activity and diet as tolerated. Avoid the use of street drugs and alcohol. Take all medications as prescribed. When you are in need of refills on your medications please contact your medical provider and/or outpatient psychiatrist to have this done. Please go to scheduled outpatient appointment for aftercare treatment. If symptoms return or become worse, call the crisis line at and/or go to the nearest emergency room for evaluation. Discharge Disposition: HOME SELF-CARE
== END 2021-04-24 15:44 | disposition home or self-care (01) | DRG 897 ==
LOC: EC 14:46 → 3MHU 17:34
PROVIDERS: ADMIT Psychiatry & Neurology Psychiatry; ATTEND Psychiatry & Neurology Psychiatry
DX: F15.150 Other stimulant abuse with stimulant-induced psychotic disorder with delusions (principal); K57.92 Diverticulitis of intestine, part unspecified, without perforation or abscess without bleeding; R45.851 Suicidal ideations; F14.10 Cocaine abuse, uncomplicated; F17.210 Nicotine dependence, cigarettes, uncomplicated; F22 Delusional disorders; F41.9 Anxiety disorder, unspecified; F95.2 Tourette's disorder; Z91.83 Wandering in diseases classified elsewhere; Z88.8 Allergy status to other drugs, medicaments and biological substances
CPT/HCPCS: 74177; 80053; 80306; 81001; 82075; 83690; 85025; 99285

== ENCOUNTER 2021-04-24 20:51 | Emergency (ER) | payer OTHER ==
[2021-04-24 21:04] VITALS: RESP 18; TEMP 98.1
[2021-04-24] MEDS ORDERED: BENZTROPINE 2 MG/2 ML AMP IV STA (21:17)
[2021-04-24] MEDS ORDERED: diphenhydrAMINE 50 MG/ML 1 ML VIAL IVP STA (21:20)
[2021-04-24] MEDS ORDERED: HYDROcodone/APAP 5-325MG 1 EACH TAB PO STA (21:42)
[2021-04-24] MEDS ORDERED: IBUPROFEN 400 MG TAB PO STA (21:42)
[2021-04-24] MEDS ORDERED: MORPHINE SULFATE 4 MG/ML SYRINGE IV STA (21:48)
--- NOTE | 2021-04-24 22:13 | ED ---
General Adult HPI - General Chief complaint: Allergic Reaction Stated complaint: reaction to meds Time Seen by Provider: 04/24/21 21:07 Source: patient, family Mode of arrival: ambulatory Limitations: no limitations - History of Present Illness Initial comments: This patient is a 41-year-old man who presents to be evaluated for complaint that he is having hard time talking and stopping neck and jaw stiffness. The patient had taken risperidone this evening. Patient had been on the [address] floor and was released with the medication. States that after taking it he started noticing that his neck and jaw hour becoming stiff and his tongue was curling up. Onset/Timin -: hour(s) Location: face, neck Quality: other Consistency: constant Improves with: none Worsens with: none Associated Symptoms: denies other symptoms - Related Data Home Medications Medication Instructions Recorded Confirmed HYDROcodone/APAP 5-325MG [[place] 1 tab PO TID PRN 04/21/21 04/24/21 5-325] Previous Rx's Medication Instructions Recorded Acetaminophen Tab [Tylenol] 650 mg PO Q4HR PRN tab 04/24/21 Ciprofloxacin HCl [Cipro] 500 mg PO BID 7 Days tab 04/24/21 LORazepam [Ativan] 1 mg PO TID 3 Days #9 tab 04/24/21 Nicotine 14Mg/24Hr Patch [Habitrol] 1 patch TRANSDERM DAILY 14 Days 04/24/21 patch Paliperidone [Invega] 3 mg PO HS 30 Days tab.er.24 04/24/21 cloNIDine HCL [Catapres] 0.2 mg PO BID #12 tablet 04/24/21 metroNIDAZOLE [Flagyl] 500 mg PO TID 7 Days tab 04/24/21 Allergies Allergy/AdvReac Type Severity Reaction Status Date / Time prochlorperazine edisylate Allergy Unknown Verified 04/24/21 22:09 [From Compazine] prochlorperazine maleate Allergy Unknown Verified 04/24/21 22:09 [From Compazine] Review of Systems ROS Statement: Those systems with pertinent positive or pertinent negative responses have been documented in the HPI. ROS Other: All systems not noted in ROS Statement are negative. Constitutional: Denies: fever, chills, weakness ENT: Reports: other (Tongue) Respiratory: Denies: cough, dyspnea Cardiovascular: Denies: chest pain, palpitations Gastrointestinal: Denies: abdominal pain, vomiting, diarrhea Genitourinary: Denies: dysuria, hematuria Musculoskeletal: Reports: back pain Skin: Denies: rash Neurological: Denies: headache, weakness, numbness, paresthesias Psychiatric: Reports: anxiety Past Medical History Past Medical History: No Reported History History of Any Multi-Drug Resistant Organisms: None Reported Past Surgical History: No Surgical Hx Reported, Hernia Repair, Orthopedic Surgery 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 Absent: scleral icterus, conjunctival injection ENT exam: Present: other (The patient having dystonic reaction with the mandible spasm and tongue spasm.) Neck exam: Present: normal inspection, full ROM Respiratory exam: Present: normal lung sounds bilaterally. Absent: respiratory distress, wheezes, rales, rhonchi Cardiovascular Exam: Present: normal rhythm, tachycardia, normal heart sounds. Absent: systolic murmur, diastolic murmur, rubs, gallop GI/Abdominal exam: Present: soft. Absent: distended, tenderness, guarding, rebound, rigid Extremities exam: Present: normal inspection, normal capillary refill. Absent: pedal edema, calf tenderness Back exam: Present: normal inspection. Absent: CVA tenderness (R), CVA tenderness (L) (He isn't) Neurological exam: Present: alert Skin exam: Present: warm, dry, intact, normal color. Absent: rash Course Vital Signs 04/24/21 04/24/21 04/24/21 20:58 21:20 21:55 Temperature 98.1 F Pulse Rate 108 H 95 Respiratory 18 18 18 Rate Blood Pressure 165/94 128/85 O2 Sat by Pulse 99 100 Oximetry 04/24/21 04/24/21 22:38 23:37 Temperature Pulse Rate 104 H 101 H Respiratory 18 Rate Blood Pressure 143/98 O2 Sat by Pulse 100 Oximetry EKG Findings - EKG Results: EKG: interpreted by ERMD, WNL, sinus rhythm, normal axis, normal QRS, normal ST/T Disposition Clinical Impression: Dystonic drug reaction Disposition: HOME SELF-CARE Condition: Good Instructions (If sedation given, give patient instructions): Extrapyramidal Symptoms (ED) Prescriptions: LORazepam [Ativan] 1 mg PO TID 3 Days #9 tab cloNIDine HCL [Catapres] 0.2 mg PO BID #12 tablet Is patient prescribed a controlled substance at d/c from ED?: No Referrals: Tony Aguilar MD [Primary Care Provider] - 1-2 days
[2021-04-24 22:40] VITALS: BP 143/98
[2021-04-24] MEDS ORDERED: LORazepam 2 MG/ML INJ IV STA (22:46)
[2021-04-24 23:38] VITALS: PULSE 101
== END 2021-04-24 23:38 | disposition home or self-care (01) ==
LOC: EC 20:51
DX: M43.6 Torticollis (principal); M26.69 Other specified disorders of temporomandibular joint; T43.595A Adverse effect of other antipsychotics and neuroleptics, initial encounter; Z88.8 Allergy status to other drugs, medicaments and biological substances
CPT/HCPCS: 99284; 96374; 96375; 93005; J2060; J2270; J1200; J0515

== ENCOUNTER 2021-08-09 18:54 | Emergency (ER) | payer OTHER ==
[2021-08-09 19:08] VITALS: TEMP 98.4
[2021-08-09 19:22] LABS: Glucose,Whole Blood 120 mg/dL (75-99)
--- NOTE | 2021-08-09 19:27 | ED ---
General Adult HPI - General Chief complaint: Recheck/Abnormal Lab/Rx Stated complaint: hypoglycemia Time Seen by Provider: 08/09/21 19:00 Source: patient, RN notes reviewed, old records reviewed Mode of arrival: EMS Limitations: no limitations - History of Present Illness Initial comments: This is a 41-year-old male who comes in stating that earlier today he was at football game and he didn't feel well he took a sugar and blood sugar was elevated at 190 so he took some insulin and then later on while he was driving started feeling weak and sweaty. Patient states he took his blood sugar at that time was 45 so he went to a store and bought some ice cream sandwiches and a dose and called the ambulance by the time EMS got there he states he was feeling better. Patient states he currently has no complaints he does not want to be here he wants no EKG no lab work and no medications at this time. Patient states blood pressure typically runs high and he takes Catapres 3 times a day. Patient states he doesn't want to be worked up for any high blood pressure he denies any headache she denies chest pain difficulty breathing or shortness of breath. Patient denies abdominal pain patient denies nausea vomiting diarrhea. I again told the patient that we should probably do a workup to some blood work - Related Data Home Medications Medication Instructions Recorded Confirmed HYDROcodone/APAP 5-325MG [[place] 1 tab PO TID PRN 04/21/21 04/24/21 5-325] Previous Rx's Medication Instructions Recorded Acetaminophen Tab [Tylenol] 650 mg PO Q4HR PRN tab 04/24/21 Ciprofloxacin HCl [Cipro] 500 mg PO BID 7 Days tab 04/24/21 LORazepam [Ativan] 1 mg PO TID 3 Days #9 tab 04/24/21 Nicotine 14Mg/24Hr Patch [Habitrol] 1 patch TRANSDERM DAILY 14 Days 04/24/21 patch Paliperidone [Invega] 3 mg PO HS 30 Days tab.er.24 04/24/21 cloNIDine HCL [Catapres] 0.2 mg PO BID #12 tablet 04/24/21 metroNIDAZOLE [Flagyl] 500 mg PO TID 7 Days tab 04/24/21 Allergies Allergy/AdvReac Type Severity Reaction Status Date / Time prochlorperazine edisylate Allergy Unknown Verified 04/24/21 22:09 [From Compazine] prochlorperazine maleate Allergy Unknown Verified 04/24/21 22:09 [From Compazine] Review of Systems ROS Statement: Those systems with pertinent positive or pertinent negative responses have been documented in the HPI. ROS Other: All systems not noted in ROS Statement are negative. 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 Patient is nontoxic and well- hydrated and is in mild distress. ENT: Neck is soft and supple. No significant lymphadenopathy is noted. Oropharynx is clear. Moist mucous membranes. Neck has full range of motion without eliciting any pain. EYES: The sclera were anicteric and conjunctiva were pink and moist. Extraocular movements were intact and pupils were equal round and reactive to light. Eyelids were unremarkable. PULMONARY: Unlabored respirations. Good breath sounds bilaterally. No audible rales rhonchi or wheezing was noted. CARDIOVASCULAR: Patient is tachycardic at 120 beats a minute ABDOMEN: Soft and nontender with normal bowel sounds. SKIN: Skin is clear with no lesions or rashes and otherwise unremarkable. NEUROLOGIC: Patient is alert and oriented x3. Cranial nerves II through XII are grossly intact. Motor and sensory are also intact. Normal speech, volume and content. Symmetrical smile. MUSCULOSKELETAL: Normal extremities with adequate strength and full range of motion. LYMPHATICS: No significant lymphadenopathy is noted PSYCHIATRIC: Normal psychiatric evaluation. Limitations: no limitations Course Vital Signs 08/09/21 19:03 Temperature 98.4 F Pulse Rate 120 H Respiratory 20 Rate Blood Pressure 157/127 O2 Sat by Pulse 98 Oximetry Medical Decision Making - Medical Decision Making I spoke with the patient a third time and he refused any intervention by us. Patient will sign out AMA understanding of risks. Disposition Clinical Impression: Hypoglycemia Disposition: Left Against Medical Advice Referrals: Tony Aguilar MD [Primary Care Provider] - 1-2 days Time of Disposition: 19:27
[2021-08-09 19:40] VITALS: BP 145/102; PULSE 98; RESP 18
== END 2021-08-09 19:40 | disposition left against medical advice (07) ==
LOC: EC 18:54
DX: E11.649 Type 2 diabetes mellitus with hypoglycemia without coma (principal); I10 Essential (primary) hypertension; Z88.8 Allergy status to other drugs, medicaments and biological substances
CPT/HCPCS: 36415; 99283

== ENCOUNTER 2022-07-02 20:07 | Emergency (ER) | payer BC ==
[2022-07-02 20:22] VITALS: TEMP 97.9
[2022-07-02 20:25] VITALS: BP 132/96; PULSE 109; RESP 16
[2022-07-02] MEDS ORDERED: SODIUM CHLORIDE 0.9% 1,000 ML IV STA (20:31)
[2022-07-02] MEDS ORDERED: diphenhydrAMINE 50 MG/ML 1 ML VIAL IVP STA (20:31)
[2022-07-02] MEDS ORDERED: KETOROLAC 15 MG/ML 1 ML VIAL IVP STA (20:31)
[2022-07-02] MEDS ORDERED: ONDANSETRON 4 MG/2 ML VIAL IVP STA (20:31)
--- NOTE | 2022-07-02 20:35 | ED ---
General Adult HPI - General Chief complaint: Overdose Stated complaint: Overdose Time Seen by Provider: 07/02/22 20:09 Source: patient, EMS Mode of arrival: EMS Limitations: no limitations - History of Present Illness Initial comments: Dictation was produced using [employer] dictation software. please excuse any grammatical, word or spelling errors. 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 He states that he started having headache 3-4 hours prior to arrival. His friend gave him some sort of injection that he thought was going to help his headache. Next thing patient remembers was EMS with mom. EMS reports that they give him one milligram of Narcan with improvement of his unresponsiveness. Patient does not recall the event he does not do drugs allegedly. Patient states that he has a bifrontal headache. He is told that he had scans in the past that his lesions on his brain. He is unable to specify any further any of his neurologic history. Denies any numbness or paresthesias to the extremities. No visual changes. Does not report that this is a worsening of his life. The ROS documented in this emergency department record has been reviewed and confirmed by me. Those systems with pertinent positive or negative responses have been documented in the HPI. All other systems are other negative and/or noncontributory. PHYSICAL EXAM: General Impression: Alert and oriented x3, not in acute distress HEENT: Normocephalic atraumatic, extra-ocular movements intact, pupils equal and reactive to light bilaterally, mucous membranes moist, dilated pupils Cardiovascular: Heart regular rate and rhythm Chest: Able to complete full sentences, no retractions, no tachypnea Abdomen: abdomen soft, non-tender, non-distended, no organomegaly Musculoskeletal: Pulses present and equal in all extremities, no peripheral edema Motor: no focal deficits noted Neurological: CN II-XII grossly intact, no focal motor or sensory deficits noted Skin: Intact with no visualized rashes Psych: Normal affect and mood ED course: 42-year-old male presents emergency by for headache and concerns of opiate overdose. He was given 1 mg of Narcan prior to arrival. Vital signs upon arrival are within acceptable limits. Laboratory evaluation obtained. CBC, metabolic panel is unremarkable. Tox labs are negative. No osmolar gap. Computed tomography scan of brain is unremarkable. Patient given headache cocktail. Patient reevaluated bedside 10:00 and found to be in stable medical condition. Patient does report that his headache. Patient offered second line treatments for migrainosus however he refused patient was observed in emergency department for 2 hours. Not showing any signs of respiratory depression. He reports that his headache started 2-3 hours prior to arrival. Computed tomography scan done within 6 hours of the onset of headache essentially ruling out subarachnoid bleeding. Patient's well-appearing. He is resting comfortably at the bedside. - Related Data Home Medications Medication Instructions Recorded Confirmed HYDROcodone/APAP 5-325MG [[place] 1 tab PO TID PRN 04/21/21 04/24/21 5-325] Previous Rx's Medication Instructions Recorded Acetaminophen Tab [Tylenol] 650 mg PO Q4HR PRN tab 04/24/21 Ciprofloxacin HCl [Cipro] 500 mg PO BID 7 Days tab 04/24/21 LORazepam [Ativan] 1 mg PO TID 3 Days #9 tab 04/24/21 Nicotine 14Mg/24Hr Patch [Habitrol] 1 patch TRANSDERM DAILY 14 Days 04/24/21 patch Paliperidone [Invega] 3 mg PO HS 30 Days tab.er.24 04/24/21 cloNIDine HCL [Catapres] 0.2 mg PO BID #12 tablet 04/24/21 metroNIDAZOLE [Flagyl] 500 mg PO TID 7 Days tab 04/24/21 Naloxone HCl 0.4 mg IM ONCE PRN #2 each 07/02/22 Allergies Allergy/AdvReac Type Severity Reaction Status Date / Time prochlorperazine edisylate Allergy Unknown Verified 04/24/21 22:09 [From Compazine] prochlorperazine maleate Allergy Unknown Verified 04/24/21 22:09 [From Compazine] Review of Systems ROS Statement: Those systems with pertinent positive or pertinent negative responses have been documented in the HPI. ROS Other: All systems not noted in ROS Statement are negative. 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 Past Anesthesia/Blood Transfusion Reactions: No Reported Reaction Past Psychological History: No Psychological Hx Reported Smoking Status: Never smoker Past Alcohol Use History: None Reported Past Drug Use History: None Reported - Past Family History Family Family Medical History: No Reported History General Exam Limitations: no limitations Course Vital Signs 07/02/22 07/02/22 20:16 20:24 Temperature 97.9 F Pulse Rate 105 H 109 H Respiratory 18 16 Rate Blood Pressure 147/100 132/96 O2 Sat by Pulse 97 98 Oximetry Medical Decision Making - Lab Data Result diagrams: 07/02/22 20:44 07/02/22 20:44 Lab Results 07/02/22 07/02/22 07/02/22 Range/Units 20:44 20:44 20:44 WBC 9.0 (3.8-10.6) k/uL RBC 5.44 (4.30-5.90) m/uL Hgb 17.4 (13.0-17.5) gm/dL Hct 52.1 (39.0-53.0) % MCV 95.7 (80.0-100.0) fL MCH 32.0 (25.0-35.0) pg MCHC 33.5 (31.0-37.0) g/dL RDW 12.0 (11.5-15.5) % Plt Count 201 (150-450) k/uL MPV 7.5 Neutrophils % 81 % Lymphocytes % 9 % Monocytes % 6 % Eosinophils % 1 % Basophils % 1 % Neutrophils # 7.3 (1.3-7.7) k/uL Lymphocytes # 0.8 L (1.0-4.8) k/uL Monocytes # 0.6 (0-1.0) k/uL Eosinophils # 0.1 (0-0.7) k/uL Basophils # 0.1 (0-0.2) k/uL Sodium 138 (137-145) mmol/L Potassium 4.4 (3.5-5.1) mmol/L Chloride 103 (98-107) mmol/L Carbon Dioxide 21 L (22-30) mmol/L Anion Gap 14 mmol/L BUN 35 H (9-20) mg/dL Creatinine 1.04 (0.66-1.25) mg/dL Est GFR (CKD-EPI)AfAm >90 (>60 ml/min/1.73 sqM) Est GFR (CKD-EPI)NonAf 87 (>60 ml/min/1.73 sqM) Glucose 114 H (74-99) mg/dL Osmolality 297 (280-301) mosm/kg Plasma Lactic Acid Martin 1.1 (0.7-2.0) mmol/L Calcium 8.9 (8.4-10.2) mg/dL Magnesium 1.9 (1.6-2.3) mg/dL Salicylates <1.0 mg/dL Acetaminophen <10.0 ug/mL Disposition Clinical Impression: Opiate overdose Disposition: HOME SELF-CARE Condition: Good Instructions (If sedation given, give patient instructions): Adult Overdose (ED) Prescriptions: Naloxone HCl 0.4 mg IM ONCE PRN #2 each PRN Reason: opiate overdose Is patient prescribed a controlled substance at d/c from ED?: No Referrals: Francisco Wynn DO [Primary Care Provider] - 1-2 days Time of Disposition: 22:05
[2022-07-02 20:55] LABS: Basophils # (A) 0.1 k/uL (0-0.2); Basophils % (A) 1 %; Eosinophils # (A) 0.1 k/uL (0-0.7); Eosinophils % (A) 1 %; HCT 52.1 % (39.0-53.0); HGB 17.4 gm/dL (13.0-17.5); Lymphocytes # (A) 0.8 k/uL (1.0-4.8); Lymphocytes % (A) 9 %; MCHC 33.5 g/dL (31.0-37.0); MCV 95.7 fL (80.0-100.0); Mean Platelet Volume 7.5; Monocytes # (A) 0.6 k/uL (0-1.0); Monocytes % (A) 6 %; Neutrophils # (A) 7.3 k/uL (1.3-7.7); Neutrophils % (A) 81 %; Platelet Count 201 k/uL (150-450); RBC 5.44 m/uL (4.30-5.90)
--- NOTE | 2022-07-02 21:12 | CT ---
EXAMINATION TYPE: CT brain wo con DATE OF EXAM: 07/02/2022 COMPARISON: 05/05/2015 HISTORY: headache CT DLP: 1257.[address] of the brain was performed. The ventricles, basal cisterns and sulci overlying the cerebral convexities demonstrate a normal appe arance. There is no evidence for intracranial hemorrhage or sulcal effacement. No mass effects are seen. Osseous calvarium is intact. If symptoms persist consider MRI as clinically warranted. IMPRESSION: 1. No acute intracranial process is seen at this time.
[2022-07-02 21:18] LABS: Acetaminophen <10.0 ug/mL; African American GFR (CKD) >90 (>60 ml/min/1.73 sqM); Anion Gap 14 mmol/L; Blood Urea Nitrogen 35 mg/dL (9-20); Calcium 8.9 mg/dL (8.4-10.2); Carbon Dioxide 21 mmol/L (22-30); Chloride 103 mmol/L (98-107); Glucose 114 mg/dL (74-99); Magnesium 1.9 mg/dL (1.6-2.3); Non-African American GFR(CKD) 87 (>60 ml/min/1.73 sqM); Potassium 4.4 mmol/L (3.5-5.1); Salicylate <1.0 mg/dL; Sodium 138 mmol/L (137-145)
== END 2022-07-02 22:24 | disposition home or self-care (01) ==
LOC: EC 20:07
DX: F11.90 Opioid use, unspecified, uncomplicated (principal); E11.9 Type 2 diabetes mellitus without complications; I10 Essential (primary) hypertension; Z88.8 Allergy status to other drugs, medicaments and biological substances; Z79.899 Other long term (current) drug therapy
CPT/HCPCS: 36415; 83930; 80048; 83605; 83735; 85025; 80143; 80179; 70450; 99284; 96374; 96375 ×2; 96361; J1200; J2405; J1885

== ENCOUNTER 2023-01-30 09:45 | Emergency (ER) | payer BC ==
[2023-01-30] MEDS ORDERED: ONDANSETRON 4 MG/2 ML VIAL IVP STA (11:18)
[2023-01-30] MEDS ORDERED: KETOROLAC 15 MG/ML 1 ML VIAL IVP STA ×2 (11:18→13:36)
[2023-01-30] MEDS ORDERED: SODIUM CHLORIDE 0.9% 1,000 ML IV STA (11:18)
[2023-01-30] MEDS ORDERED: diphenhydrAMINE 50 MG/ML 1 ML VIAL IVP STA (11:18)
--- NOTE | 2023-01-30 11:23 | ED ---
Anxiety HPI - General Chief Complaint: Anxiety Stated Complaint: Anxiety Time Seen by Provider: 01/30/23 10:47 Source: patient, family, RN notes reviewed Mode of arrival: ambulatory Limitations: no limitations - History of Present Illness Initial Comments: This is a 42-year-old male who presents to the emergency department for anxiety. Patient states that he is going through a divorce and has been incredibly anxious over the last several days. He feels nauseous and has a headache. Also states that he is unable to sleep. He did take 3 Ativan tablets this morning. States that this is his prescription. He is otherwise not taking any psychiatric medication. Denies any suicidal or homicidal ideations. Also denies any auditory or visual hallucinations. He is with his grandfather, who states that he came over to his house earlier today and was incredibly distraught. Denies any fevers, chills, sore throat, cough, dyspnea, chest pain, palpitations, abdominal pain, vomiting, diarrhea, or back pain. MD Complaint: anxiety - Related Data Home Medications: Home Medications Medication Instructions Recorded Confirmed Benzonatate [Tessalon Perle] 200 mg PO TID PRN 01/30/23 01/30/23 Celecoxib [CeleBREX] 200 mg PO BID 01/30/23 01/30/23 Cephalexin [Keflex] 500 mg PO Q8HR 01/30/23 01/30/23 HYDROcodone/APAP 7.5-325MG [[place] 1 tab PO TID PRN 01/30/23 01/30/23 7.5-325] RX: Losartan Potassium 100 mg PO DAILY 01/30/23 01/30/23 RX: predniSONE See Taper PO DIRECTED 01/30/23 01/30/23 Testosterone Cypionate 200 mg IM WE 01/30/23 01/30/23 [Depo-Testosterone] Zolpidem [Ambien] 10 mg PO HS PRN 01/30/23 01/30/23 cloNIDine HCL [Catapres] 0.2 mg PO QID PRN 01/30/23 01/30/23 Previous Rx's Medication Instructions Recorded LORazepam [Ativan] 1 mg PO TID 3 Days #9 tab 04/24/21 Allergies/Adverse Reactions: Allergies Allergy/AdvReac Type Severity Reaction Status Date / Time prochlorperazine edisylate Allergy Unknown Verified 01/30/23 12:59 [From Compazine] prochlorperazine maleate Allergy Unknown Verified 01/30/23 12:59 [From Compazine] Review of Systems ROS Statement: Those systems with pertinent positive or pertinent negative responses have been documented in the HPI. ROS Other: All systems not noted in ROS Statement are negative. 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 Absent: scleral icterus, conjunctival injection, periorbital swelling Respiratory exam: Present: normal lung sounds bilaterally. Absent: respiratory distress, wheezes, rales, rhonchi, stridor Cardiovascular Exam: Present: regular rate, normal rhythm, normal heart sounds. Absent: systolic murmur, diastolic murmur, rubs, gallop, clicks GI/Abdominal exam: Present: soft, normal bowel sounds. Absent: distended, tenderness, guarding, rebound, rigid Neurological exam: Present: alert, oriented X3, CN II-XII intact Psychiatric exam: Present: normal affect, normal mood Skin exam: Present: warm, dry, intact, normal color. Absent: rash Course Vital Signs 01/30/23 01/30/23 09:50 14:15 Temperature 98 F 98.6 F Pulse Rate 126 H 110 H Respiratory 18 20 Rate Blood Pressure 130/58 116/75 O2 Sat by Pulse 96 97 Oximetry Medical Decision Making - Medical Decision Making This is a 42-year-old male who presents to the emergency department for anxiety. Was pt. sent in by a medical professional or institution? @ -No Did you speak to anyone other than the patient for history? @ -His grandfather Did you review nursing and triage notes? @ -Yes, and I agree, it is accurate with regards to the patient's symptoms. Were old charts reviewed? @ -No Differential Diagnosis? @ -Differential Mental Health Depression, anxiety, bipolar, psychosis, schizophrenia, borderline personality, situational depression, adjustment disorder, behavioral disorder, brain tumor, malingering, substance abuse, encephalopathy, medication reaction, dementia, hypothyroidism, degenerative neurologic disorder, lupus.... This is not meant to be all-inclusive list What testing was considered but not performed? (CT, X-rays, U/S, labs)? Why? @ -We tried to get a UDS, however the patient refused. What meds were considered but not given? Why? @ -None Did you discuss the management of the patient with other professionals? @ -Yes, Milvia with EPS, who advised that the patient's largest problem is substance abuse, particularly, methamphetamine, and can be discharged home from a psychiatric perspective. He filled out a safety plan and will follow up with [facility] social organization professor tomorrow. Did you reconcile home meds? @ -No Was smoking cessation discussed for >3mins.? @ -No Was critical care preformed (if so, how long)? @ -No Were there social determinants of health that impacted care today? How? (Homelessness, low income, unemployed, alcoholism, drug addiction, transportation, low edu. Level, literacy, decrease access to med. care, nursing home, rehab)? @ -No Was there de-escalation of care discussed even if they declined? (Discuss DNR or withdrawal of care, Hospice)? @ -No What co-morbidities impacted this encounter? (DM, HTN, Smoking, COPD, CAD, Cancer, CVA, Hep., AIDS, mental health diagnosis, sleep apnea, morbid obesity)? @ Generalized anxiety disorder Was patient admitted / discharged? @ -Discharged. Patient given Toradol, IV fluids, and Zofran for his symptoms. EPS evaluated the patient, and advised that he has a long-standing history of polysubstance abuse, most often with methamphetamines. She advised that this is not a psychiatric problem and he needs help with rehab. Patient declined a UDS in emergency department. She also advised that he has very frequent problems with his , and always thinks that his is cheating on him. Patient's grandfather states that he will take him to [facility] social organization professor tomorrow to get him help. Patient continues to deny suicidal or homicidal ideations. Patient discharged home into the care of his grandfather. Undiagnosed new problem with uncertain prognosis? @ -None Drug Therapy requiring intensive monitoring for toxicity (Heparin, Nitro, Insulin, Cardizem)? @ -None Were any procedures done? @ -None Diagnosis/symptom? @ -Generalized anxiety disorder Acute, or Chronic, or Acute on Chronic? @ -Acute on chronic Uncomplicated (without systemic symptoms) or Complicated (systemic symptoms)? @ -Uncomplicated Side effects of treatment? @ -None Exacerbation, Progression, or Severe Exacerbation] @ -Not applicable Poses a threat to life or bodily function? @ -Yes, this does impact his function if symptoms are severe enough. Return precautions reviewed in depth, the patient is instructed to return to the emergency department with any new, worsening, or concerning symptoms. Patient verbalized understanding. This case was discussed in detail with the attending ED physician, Dr. Kramer. Presentation, findings, and treatment plan discussed in detail as well. Disposition Clinical Impression: Adjustment reaction, LACI (generalized anxiety disorder) Disposition: HOME SELF-CARE Instructions (If sedation given, give patient instructions): Generalized Anxiety Disorder (ED) Additional Instructions: Return to the emergency department with any new, worsening, or concerning sy mptoms. Follow-up with [facility] student services dean for further care. Follow up with your primary care provider in 1-2 days. Is patient prescribed a controlled substance at d/c from ED?: No Referrals: Francisco Wynn DO [Primary Care Provider] - 1-2 days
[2023-01-30] MEDS ORDERED: LORazepam 1 MG TAB PO STA (13:36)
[2023-01-30] MEDS ORDERED: ONDANSETRON 4 MG ODT STARTER PACK 2 TAB BTL PO STA (13:37)
[2023-01-30] MEDS ORDERED: ACETAMINOPHEN TAB 325 MG TAB PO STA (13:37)
[2023-01-30] MEDS ORDERED: IBUPROFEN 600 MG STARTER PACK 4 TAB BTL PO STA (13:37)
[2023-01-30 14:20] VITALS: BP 116/75; PULSE 110; RESP 20; TEMP 98.6
== END 2023-01-30 14:15 | disposition home or self-care (01) ==
LOC: EC 09:45
DX: F43.22 Adjustment disorder with anxiety (principal); I10 Essential (primary) hypertension; E11.9 Type 2 diabetes mellitus without complications; F17.290 Nicotine dependence, other tobacco product, uncomplicated; Z79.899 Other long term (current) drug therapy
CPT/HCPCS: 82075; 99283; 96374; 96376; 96375 ×2; J1200; J2405; J1885; S0119

== ENCOUNTER 2023-02-03 15:51 | Emergency (ER) | payer BC ==
[2023-02-03 16:01] VITALS: TEMP 98.5
--- NOTE | 2023-02-03 16:11 | ED ---
Chest Pain HPI - General Chief Complaint: Chest Pain Stated Complaint: chest pain Time Seen by Provider: 02/03/23 16:09 Source: patient, RN notes reviewed, old records reviewed Mode of arrival: ambulatory Limitations: no limitations - History of Present Illness Initial Comments: This is a 42-year-old male to the emergency department for evaluation. Patient presents today for evaluation of chest pain elevated heart rate anxiety elevated blood pressure patient does admit to taking some sort of what mood altering substances today which she was given 2 by coworker. Patient has no current headache, does have mild chest pain, mild shortness of breath with anxiety. He does have history of substance abuse but denies homicidal or suicidal thoughts. He help regarding his current mental state. He does admit some shortness of breath and situational depression MD Complaint: chest pain, other (Anxiety) -: days(s) Onset: during rest, during exertion, associated with drug use Pain Location: substernal Pain Radiation: none Severity: moderate Severity scale (1-10): 4 Quality: tightness Consistency: constant Improves With: nothing Worsens With: exertion Anginal Symptoms: nausea, diaphoresis, dyspnea, sense of impending doom Other Symptoms: palpitations Treatments Prior to Arrival: none - Related Data Home Medications Medication Instructions Recorded Confirmed Benzonatate [Tessalon Perle] 200 mg PO TID PRN 01/30/23 01/30/23 Celecoxib [CeleBREX] 200 mg PO BID 01/30/23 01/30/23 Cephalexin [Keflex] 500 mg PO Q8HR 01/30/23 01/30/23 HYDROcodone/APAP 7.5-325MG [[place] 1 tab PO TID PRN 01/30/23 01/30/23 7.5-325] Losartan Potassium 100 mg PO DAILY 01/30/23 01/30/23 Testosterone Cypionate 200 mg IM WE 01/30/23 01/30/23 [Depo-Testosterone] Zolpidem [Ambien] 10 mg PO HS PRN 01/30/23 01/30/23 cloNIDine HCL [Catapres] 0.2 mg PO QID PRN 01/30/23 01/30/23 predniSONE See Taper PO DIRECTED 01/30/23 01/30/23 Previous Rx's Medication Instructions Recorded LORazepam [Ativan] 1 mg PO TID 3 Days #9 tab 04/24/21 Allergies Allergy/AdvReac Type Severity Reaction Status Date / Time prochlorperazine edisylate Allergy Unknown Verified 02/03/23 16:01 [From Compazine] prochlorperazine maleate Allergy Unknown Verified 02/03/23 16:01 [From Compazine] Review of Systems ROS Statement: Those systems with pertinent positive or pertinent negative responses have been documented in the HPI. ROS Other: All systems not noted in ROS Statement are negative. 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 History of Any Multi-Drug Resistant Organisms: None Reported Past Surgical History: Hernia Repair, Orthopedic Surgery Additional Past Surgical History / Comment(s): Terrets syndrome Past Anesthesia/Blood Transfusion Reactions: No Reported Reaction Past Psychological History: Anxiety Smoking Status: Vaper Past Alcohol Use History: Daily Past Drug Use History: None Reported - Past Family History Family Family Medical History: No Reported History General Exam Limitations: no limitations General appearance: anxious Head exam: Present: atraumatic, normocephalic, normal inspection Eye exam: Present: normal appearance, PERRL, EOMI. Absent: scleral icterus, conjunctival injection, periorbital swelling ENT exam: Present: normal exam, mucous membranes moist Neck exam: Present: normal inspection. Absent: tenderness, meningismus, lymphadenopathy Respiratory exam: Present: normal lung sounds bilaterally. Absent: respiratory distress, wheezes, rales, rhonchi, stridor Cardiovascular Exam: Present: normal rhythm, tachycardia, normal heart sounds. Absent: systolic murmur, diastolic murmur, rubs, gallop, clicks GI/Abdominal exam: Present: soft, normal bowel sounds. Absent: distended, tenderness, guarding, rebound, rigid Extremities exam: Present: normal inspection, full ROM, normal capillary refill. Absent: tenderness, pedal edema, joint swelling, calf tenderness Back exam: Present: normal inspection Neurological exam: Present: alert, oriented X3, CN II-XII intact Psychiatric exam: Present: normal affect, normal mood Skin exam: Present: warm, dry, intact, normal color. Absent: rash Course Vital Signs 02/03/23 02/03/23 02/03/23 15:56 16:24 18:25 Temperature 98.5 F Pulse Rate 120 H 109 H Pulse Rate [ 124 H [employer] ] Respiratory 18 18 Rate Blood Pressure 170/122 147/95 O2 Sat by Pulse 99 96 Oximetry 02/03/23 19:20 Temperature Pulse Rate 103 H Pulse Rate [ [employer] ] Respiratory Rate Blood Pressure O2 Sat by Pulse Oximetry - Reevaluation(s) Reevaluation #1: 02/03/23 18:15 Medical record is reviewed 02/03/23 18:16 We will clearly patient is psychiatry regarding possible placement of psychiatric or substance abuse Reevaluation #2: 02/03/23 18:16 Patient symptoms are improving including vital signs 02/03/23 19:59 Patient was seen and evaluated by psychiatry given follow-up evaluation for substance abuse Reevaluation #3: 02/03/23 18:16 Patient informed results and questions are answered Reevaluation #4: 02/03/23 20:00 Was pt. sent in by a medical professional or institution? @ -no Did you speak to anyone other than the patient for history? @ -no Did you review nursing and triage notes? @ -agree Were old charts reviewed? @ -no Differential Diagnosis? @ -no EKG interpreted by me (3pts min.)? @ -no X-rays interpreted by me (1pt min.)? @ -no CT interpreted by me (1pt min.)? @ -no U/S interpreted by me (1pt. min.)? @ -no What testing was considered but not performed? (CT, X-rays, U/S, labs)? Why? @ -no What meds were considered but not given? Why? @ -no Did you discuss the management of the patient with other professionals? @ -no Did you reconcile home meds? @ -no Was smoking cessation discussed for >3mins.? @ -no Was critical care preformed (if so, how long)? @ -no Were there social determinants of health that impacted care today? How? (Homelessness, low income, unemployed, alcoholism, drug addiction, transportation, low edu. Level, literacy, decrease access to med. care, prison, rehab)? @ -no Was there de-escalation of care discussed even if they declined? (Discuss DNR or withdrawal of care, Hospice)? @ -no What co-morbidities impacted this encounter? (DM, HTN, Smoking, COPD, CAD, Cancer, CVA, Hep., AIDS, mental health diagnosis, sleep apnea, morbid obesity)? @ -no Was patient admitted / discharged? @ -dc Undiagnosed new problem with uncertain prognosis? @ -no Drug Therapy requiring intensive monitoring for toxicity (Heparin, Nitro, Insulin, Cardizem)? @ -no Were any procedures done? @ -no Diagnosis/symptom? @ - Acute, or Chronic, or Acute on Chronic? @ -acute Uncomplicated (without systemic symptoms) or Complicated (systemic symptoms)? @ -uncomplicated Side effects of treatment? @ -no Exacerbation, Progression, or Severe Exacerbation] @ -no Poses a threat to life or bodily function? @ -no Reevaluation #5: 02/03/23 20:00 Differential Chest Pain: Stable Angina, Unstable Angina, STEMI, NSTEMI Aortic Dissection, Pneumothorax, Musculoskeletal, Esophageal Spasm GERD, Cholecystitis, Pancreatitis, Zoster, this is not meant to be an all-inclusive list. Chest Pain MDM - MDM 42 male to the emergency department for evaluation patient with chest pain history of drug abuse and possible drug withdrawal currently. Patient symptoms are improved patient can be discharged home Disposition Clinical Impression: Adjustment reaction, Atypical chest pain Disposition: HOME SELF-CARE Condition: Good Instructions (If sedation given, give patient instructions): Chest Pain (ED) Is patient prescribed a controlled substance at d/c from ED?: No Referrals: Francisco Wynn DO [Primary Care Provider] - 1-2 days Forms: In Substance Abuse Facilities Time of Disposition: 20:00
[2023-02-03] MEDS ORDERED: clonazePAM 0.5 MG TAB PO STA (16:35)
[2023-02-03] MEDS ORDERED: SODIUM CHLORIDE 0.9% 1,000 ML IV STA (16:35)
[2023-02-03] MEDS ORDERED: SODIUM CHLORIDE 0.9% 500 ML 500 ML IV STA (16:35)
[2023-02-03] MEDS ORDERED: LORazepam 2 MG/ML INJ IV STA (16:35)
--- NOTE | 2023-02-03 16:41 | XR ---
EXAMINATION TYPE: XR chest 1V portable DATE OF EXAM: 02/03/2023 COMPARISON: 12/09/2014 HISTORY: Chest pain TECHNIQUE: Single frontal view of the chest is obtained. FINDINGS: There is no focal air space opacity, pleural effusion, or pneumothorax seen. The cardiac silhouette size is within normal limits. The osseous structures are intact. IMPRESSION: 1. No acute process.
[2023-02-03] MEDS ORDERED: SODIUM CHLORIDE 0.9% 1,000 ML IV SCH (16:45)
[2023-02-03 17:12] LABS: Basophils % (A) 0 %; Eosinophils # (A) 0.1 k/uL (0-0.7); Eosinophils % (A) 1 %; HGB 16.2 gm/dL (13.0-17.5); Lymphocytes # (A) 1.9 k/uL (1.0-4.8); Lymphocytes % (A) 21 %; MCH 30.7 pg (25.0-35.0); MCHC 35.2 g/dL (31.0-37.0); MCV 87.2 fL (80.0-100.0); Mean Platelet Volume 7.4; Monocytes # (A) 0.7 k/uL (0-1.0); Monocytes % (A) 7 %; Neutrophils # (A) 6.3 k/uL (1.3-7.7); Neutrophils % (A) 68 %; Platelet Count 296 k/uL (150-450); RBC 5.28 m/uL (4.30-5.90); RDW 13.1 % (11.5-15.5); WBC 9.2 k/uL (3.8-10.6)
[2023-02-03 17:26] LABS: ALT 25 U/L (4-49); AST 25 U/L (17-59); African American GFR (CKD) >90 (>60 ml/min/1.73 sqM); Albumin 4.4 g/dL (3.5-5.0); Alcohol <10 mg/dL; Alkaline Phosphatase 96 U/L (38-126); Anion Gap 11 mmol/L; Blood Urea Nitrogen 21 mg/dL (9-20); Calcium 9.1 mg/dL (8.4-10.2); Carbon Dioxide 27 mmol/L (22-30); Chloride 100 mmol/L (98-107); Glucose 111 mg/dL (74-99); Lipase 70 U/L (23-300); Non-African American GFR(CKD) >90 (>60 ml/min/1.73 sqM); Potassium 3.9 mmol/L (3.5-5.1); Sodium 138 mmol/L (137-145); Total Bilirubin 1.4 mg/dL (0.2-1.3); Total Protein 7.8 g/dL (6.3-8.2)
[2023-02-03 17:29] LABS: INR 1.1 (<1.2); Partial Thromboplastin Time 25.1 sec (22.0-30.0); Prothrombin Time 11.7 sec (9.0-12.0)
[2023-02-03] MEDS ORDERED: LABETALOL 5 MG/ML VIAL MDV IVP STA (18:13)
[2023-02-03 19:35] LABS: Amphetamine Screen,Urine Detected (NotDetected); Barbiturate Screen,Urine Not Detected (NotDetected); Benzodiazepines Screen,Urine Detected (NotDetected); Cocaine Screen,Urine Not Detected (NotDetected); Methadone Screen, Urine Not Detected (NotDetected); Opiate Screen,Urine Detected (NotDetected); Oxycodone Screen, Urine Not Detected (NotDetected); Phencyclidine Screen,Urine Not Detected (NotDetected); Tricyclic Antidepressant,Urine Not Detected (NotDetected); Urn Cannabinoid Scrn Not Detected (NotDetected)
[2023-02-03 20:26] VITALS: BP 155/108; PULSE 100; RESP 16
== END 2023-02-03 21:57 | disposition home or self-care (01) ==
LOC: EC 15:51
DX: R07.89 Other chest pain (principal); F43.20 Adjustment disorder, unspecified; F41.9 Anxiety disorder, unspecified; I10 Essential (primary) hypertension; E11.9 Type 2 diabetes mellitus without complications; F17.290 Nicotine dependence, other tobacco product, uncomplicated; Z79.1 Long term (current) use of non-steroidal anti-inflammatories (NSAID); Z79.52 Long term (current) use of systemic steroids; Z79.899 Other long term (current) drug therapy; Z88.8 Allergy status to other drugs, medicaments and biological substances
CPT/HCPCS: 36415; 93005; 83880; 80053; 83690; 83735; 84484; 85025; 85610; 85730; 80306; 80320; 71045; 99285; 96374; 96375; 96361 ×3; J2060

== ENCOUNTER 2023-02-04 14:25 | Emergency (ER) | payer BC ==
[2023-02-04 14:42] VITALS: TEMP 98.5
[2023-02-04] MEDS ORDERED: SODIUM CHLORIDE 0.9% 1,000 ML IV ONE ×2 (16:01→18:45)
[2023-02-04] MEDS ORDERED: LORazepam 2 MG/ML INJ IV STA ×2 (16:01→18:05)
--- NOTE | 2023-02-04 16:26 | ED ---
General Adult HPI - General Source: patient, RN notes reviewed Mode of arrival: ambulatory Limitations: no limitations <Maria L Wright - Last Filed: 02/04/23 20:38> <Roselyn Wilson - Last Filed: 02/04/23 21:34> - General Chief complaint: Urogenital Stated complaint: can't urinate Time Seen by Provider: 02/04/23 14:55 - History of Present Illness Initial comments: 42-year-old male with no significant past medical history since to the emergency department with a chief complaint of urinary hesitancy. Patient reports that he has had difficulty voiding and well have to wait 20-25 minutes before starting to have a urinary void. Patient is also complaining of flank pain, nausea, chronic back pain and chest pain. Patient states "I was seen at [facility] earlier today and they gave me some medication and it made my heart zap." Patient is a poor historian. Patient denies any fevers, chills, abd ominal pain, soreness of breath, melena, hematochezia, dysuria, hematuria. He should reports his last void was an hour prior to arrival. Patient denies any recent alcohol or illicit drug use. Patient was seen here yesterday at this facility for chest pain and had a cardiac evaluation which is essentially negative. He denies any homicidal or suicidal ideation. He denies any visual or auditory hallucinations. She reports he has had multiple workups at multiple different facilities in the results in 2 days for which he reports his workups did not show a direct cause for his symptoms. (Maria L Wright) - Related Data Home Medications Medication Instructions Recorded Confirmed Benzonatate [Tessalon Perle] 200 mg PO TID PRN 01/30/23 02/04/23 Celecoxib [CeleBREX] 200 mg PO BID 01/30/23 02/04/23 HYDROcodone/APAP 7.5-325MG [[place] 1 tab PO TID PRN 01/30/23 02/04/23 7.5-325] Losartan Potassium 100 mg PO DAILY 01/30/23 02/04/23 Testosterone Cypionate 200 mg IM WE 01/30/23 02/04/23 [Depo-Testosterone] Zolpidem [Ambien] 10 mg PO HS PRN 01/30/23 02/04/23 cloNIDine HCL [Catapres] 0.2 mg PO QID PRN 01/30/23 02/04/23 Previous Rx's Medication Instructions Recorded LORazepam [Ativan] 1 mg PO TID 3 Days #9 tab 04/24/21 Allergies Allergy/AdvReac Type Severity Reaction Status Date / Time prochlorperazine edisylate Allergy Unknown Verified 02/04/23 15:49 [From Compazine] prochlorperazine maleate Allergy Unknown Verified 02/04/23 15:49 [From Compazine] Review of Systems ROS Other: All systems not noted in ROS Statement are negative. <Maria L Wright - Last Filed: 02/04/23 20:38> ROS Other: All systems not noted in ROS Statement are negative. <Roselyn Wilson - Last Filed: 02/04/23 21:34> ROS Statement: Those systems with pertinent positive or pertinent negative responses have been documented in the HPI. 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 History of Any Multi-Drug Resistant Organisms: None Reported Past Surgical History: Hernia Repair, Orthopedic Surgery Additional Past Surgical History / Comment(s): Terrets syndrome Past Anesthesia/Blood Transfusion Reactions: No Reported Reaction Past Psychological History: Anxiety Smoking Status: Vaper Past Alcohol Use History: Daily Past Drug Use History: None Reported - Past Family History Family Family Medical History: No Reported History <Maria L Wright - Last Filed: 02/04/23 20:38> General Exam Limitations: no limitations General appearance: alert, in no apparent distress, anxious Head exam: Present: atraumatic, normocephalic, normal inspection Eye exam: Present: normal appearance, PERRL, EOMI. Absent: scleral icterus, conjunctival injection, periorbital swelling Pupils: Present: mydriatic ENT exam: Present: normal exam, mucous membranes moist, other (Rhinorrhea) Neck exam: Present: normal inspection. Absent: tenderness, meningismus, lymphadenopathy Respiratory exam: Present: normal lung sounds bilaterally. Absent: respiratory distress, wheezes, rales, rhonchi, stridor Cardiovascular Exam: Present: regular rate, normal rhythm, normal heart sounds. Absent: systolic murmur, diastolic murmur, rubs, gallop, clicks GI/Abdominal exam: Present: soft, normal bowel sounds. Absent: distended, tenderness, guarding, rebound, rigid Extremities exam: Present: normal inspection, full ROM, normal capillary refill. Absent: tenderness, pedal edema, joint swelling, calf tenderness Back exam: Present: normal inspection Neurological exam: Present: alert, oriented X3, CN II-XII intact Psychiatric exam: Present: normal affect, normal mood Skin exam: Present: warm, dry, intact, normal color. Absent: rash <Maria L Wright - Last Filed: 02/04/23 20:38> - General Exam Comments Initial Comments: General: Alert, in no acute distress he does appear anxious Head: atraumatic normocephalic. Eyes PERRL, EOMI intact, mucous membranes moist Respiratory: Lungs clear to auscultation bilaterally Cardiovascular: Heart rate regular rate and rhythm Abdominal: Soft without guarding or rebound Extremities: Normal inspection with full range of motion and normal capillary refill Neuroogic: alert and oriented 3, CN II-XII intact, able to ambulate with steady gait Skin: warm dry and intact with normal color (Maria L Wright) Course <Maria L Wright - Last Filed: 02/04/23 20:38> Vital Signs 02/04/23 02/04/23 02/04/23 14:38 15:55 16:00 Temperature 98.5 F Pulse Rate 119 H 102 H 108 H Respiratory 20 22 22 Rate Blood Pressure 161/86 149/106 145/111 O2 Sat by Pulse 98 98 98 Oximetry 02/04/23 02/04/23 02/04/23 16:15 16:30 17:30 Temperature Pulse Rate 98 105 H 108 H Respiratory 20 22 22 Rate Blood Pressure 145/102 154/100 154/100 O2 Sat by Pulse 98 99 98 Oximetry 02/04/23 02/04/23 02/04/23 18:45 19:08 20:53 Temperature Pulse Rate 121 H 117 H 103 H Respiratory 24 18 20 Rate Blood Pressure 156/104 156/99 140/100 O2 Sat by Pulse 98 98 97 Oximetry - Reevaluation(s) Reevaluation #1: 02/04/23 16:49 Patient reevaluated. Patient standing in room providing urine sample in urine sample. He shouldn't able tingling to the bathroom with a steady gait. (Maria L Wright) Reevaluation #2: 02/04/23 17:20 Patient evaluated. Patient is accusing staff of "poisoning his urine with methamphetamines." (Maria L Wright) Reevaluation #3: 02/04/23 17:52 Patient reevaluated and updated on all results. Patient denies recent metha mphetamine use (Maria L Wright) Reevaluation #4: 02/04/23 18:48 Patient reevaluated and updated on all results. Patient states he is still unable to void, however has provided 3 urine samples during his stay in the emergency department he is complaining of a headache. (Maria L Wright) Reevaluation #5: 02/04/23 20:[address] rushing from [facility] who believes the patient can be better managed by psychiatric services. RN from [facility]ware. She Will Evaluate the Patient. It Is My Intention to Discharge the Patient. Case Signed out to DONATO Dempsey for Continuation of Care with the Intention for Discharge. (Maria L Wright) EKG Findings - EKG Comments: EKG Findings:: I interpreted the following: EKG performed at 16:17. Rate 97 bpm normal sinus rhythm. NV interval 162, QRS duration 121, QT/QTC 373/428 <Maria L Wright - Last Filed: 02/04/23 20:38> Medical Decision Making - Lab Data Result diagrams: 02/04/23 16:19 02/04/23 16:19 <Maria L Wright - Last Filed: 02/04/23 20:38> - Lab Data Result diagrams: 02/04/23 16:19 02/04/23 16:19 <Roselyn Wilson - Last Filed: 02/04/23 21:34> - Medical Decision Making Was pt. sent in by a medical professional or institution (TORIE Bruce, CLINICAL NURSE REVIEWER, urgent care, hospital, or residential...) When possible be specific @ -[No] Did you speak to anyone other than the patient for history (EMS, parent, family, police, friend...)? What history was obtained from this source @ -[No] Did you review nursing and triage notes (agree or disagree)? Why? @ -[I reviewed and agree with nursing and triage notes] Were old charts reviewed (outside hosp., previous admission, EMS record, old E KG, old radiological studies, urgent care reports/EKG's, residential records)? Report findings @ -[No old charts were reviewed] Differential Diagnosis (chest pain, altered mental status, abdominal pain women, abdominal pain men, vaginal bleeding, weakness, fever, dyspnea, syncope, headache, dizziness, GI bleed, back pain, seizure, CVA, palpatations, mental h ealth, musculoskeletal)? @ -[not applicable] EKG interpreted by me (3pts min.). @ -[As above] X-rays interpreted by me (1pt min.). @ -[None done] CT interpreted by me (1pt min.). @ -[None done] U/S interpreted by me (1pt. min.). @ -[None done] What testing was considered but not performed or refused? (CT, X-rays, U/S, labs)? Why? @ -[None] What meds were considered but not given or refused? Why? @ -[None] Did you discuss the management of the patient with other professionals (professionals i.e. , PA, CLINICAL NURSE REVIEWER, lab, RT, psych nurse, 7th grade social studies teacher, service liaison representative, teacher, aoc plans intelligence officer chief, director case management)? Give summary @ -[No] Was smoking cessation discussed for >3mins.? @ -[No] Was critical care preformed (if so, how long)? @ -[No] Were there social determinants of health that impacted care today? How? (Homelessness, low income, unemployed, alcoholism, drug addiction, transportation, low edu. Level, literacy, decrease access to med. care, retirement, rehab)? @ -[No] Was there de-escalation of care discussed even if they declined (Discuss DNR or withdrawal of care, Hospice)? DNR status @ -[No] What co-morbidities impacted this encounter? (DM, HTN, Smoking, COPD, CAD, Cancer, CVA, ARF, Chemo, Hep., AIDS, mental health diagnosis, sleep apnea, morb id obesity)? @ -[None] Was patient admitted / discharged? Hospital course, mention meds given and route, prescriptions, significant lab abnormalities, going to OR and other pertinent info. @ This is a 42-year-old male who presents the emergency department with urinary hesitancy. Patient had a thorough history and physical exam p erformed on the ED. Physical exam is essentially unremarkable. Heart rate regular rate and rhythm lungs clear to auscultation bilaterally abdomen soft nontender. Patient able to ambulate with a steady gait. Patient had lab work and imaging which is essentially unremarkable. Urine drug screen is significant positive for methamphetamines. I discussed the results in detail with the patient who verbalized understanding and all questions were addressed. She was given 2 L of IV fluids, Toradol, losartan, flomax with symptomatic relief on the ED. attempted to admit the patient to internal medicine who believes the patient should be evaluated by psychiatric services. Patient will be signed out to DONATO Dempsey for continuation of care pending the psychiatric evaluation. . Case discussed with YAJAIRA Canales who agrees with plan of care Undiagnosed new problem with uncertain prognosis? @ -[No] Drug Therapy requiring intensive monitoring for toxicity (Heparin, Nitro, Insulin, Cardizem)? @ -[No] Were any procedures done? @ -[No] Diagnosis/symptom? @ -urinary hesitancy - methamphetamine abuse Acute, or Chronic, or Acute on Chronic? @ -acute Uncomplicated (without systemic symptoms) or Complicated (systemic symptoms)? @ -uncomplicated Side effects of treatment? @ -[No] Exacerbation, Progression, or Severe Exacerbation? @ -[No] Poses a threat to life or bodily function? How? (Chest pain, [place], NM, pneumonia, PE, COPD, DKA, ARF, appy, cholecystitis, CVA, Diverticulitis, Homicidal, Suicidal, threat to staff... and all critical care pts) @ -low likelihood (Maria L Wright) Patient evaluated by EPS who suspect symptoms related to drug use. Patient not in acute psychosis he is not a threat to himself or others. Vitals within acceptable limits patient will be discharged home with return parameters. (Roselyn Wilson) - Lab Data Lab Results 02/04/23 02/04/23 02/04/23 Range/Units 16:19 16:19 16:19 WBC 8.9 (3.8-10.6) k/uL RBC 5.78 (4.30-5.90) m/uL Hgb 17.9 H (13.0-17.5) gm/dL Hct 51.1 (39.0-53.0) % MCV 88.4 (80.0-100.0) fL MCH 31.0 (25.0-35.0) pg MCHC 35.0 (31.0-37.0) g/dL RDW 12.8 (11.5-15.5) % Plt Count 283 (150-450) k/uL MPV 7.3 Neutrophils % 78 % Lymphocytes % 13 % Monocytes % 6 % Eosinophils % 1 % Basophils % 0 % Neutrophils # 6.9 (1.3-7.7) k/uL Lymphocytes # 1.2 (1.0-4.8) k/uL Monocytes # 0.5 (0-1.0) k/uL Eosinophils # 0.1 (0-0.7) k/uL Basophils # 0.0 (0-0.2) k/uL PT 12.5 H (9.0-12.0) sec INR 1.2 H (<1.2) APTT 26.9 (22.0-30.0) sec D-Dimer 0.23 (<0.60) mg/L FEU Sodium (137-145) mmol/L Potassium (3.5-5.1) mmol/L Chloride (98-107) mmol/L Carbon Dioxide (22-30) mmol/L Anion Gap mmol/L BUN (9-20) mg/dL Creatinine (0.66-1.25) mg/dL Est GFR (CKD-EPI)AfAm (>60 ml/min/1.73 sqM) Est GFR (CKD-EPI)NonAf (>60 ml/min/1.73 sqM) Glucose (74-99) mg/dL Calcium (8.4-10.2) mg/dL Total Bilirubin (0.2-1.3) mg/dL AST (17-59) U/L ALT (4-49) U/L Alkaline Phosphatase (38-126) U/L Troponin I (0.000-0.034) ng/mL Total Protein (6.3-8.2) g/dL Albumin (3.5-5.0) g/dL Urine Color Urine Appearance (Clear) Urine pH (5.0-8.0) Ur Specific [place] (1.001-1.035) Urine Protein (Negative) Urine Glucose (UA) (Negative) Urine Ketones (Negative) Urine Blood (Negative) Urine Nitrite (Negative) Urine Bilirubin (Negative) Urine Urobilinogen (<2.0) mg/dL Ur Leukocyte Esterase (Negative) Urine RBC (0-5) /hpf Urine WBC (0-5) /hpf Urine Opiates Screen Detected H (NotDetected) Ur Oxycodone Screen Not Detected (NotDetected) Urine Methadone Screen Not Detected (NotDetected) Ur Propoxyphene Screen Not Detected (NotDetected) Ur Barbiturates Screen Not Detected (NotDetected) U Tricyclic Antidepress Not Detected (NotDetected) Ur Phencyclidine Scrn Not Detected (NotDetected) Ur Amphetamines Screen Detected H (NotDetected) U Methamphetamines Scrn Detected H (NotDetected) U Benzodiazepines Scrn Detected H (NotDetected) Urine Cocaine Screen Not Detected (NotDetected) U Marijuana (THC) Screen Not Detected (NotDetected) Serum Alcohol mg/dL Influenza Type A (PCR) (Not Detectd) Influenza Type B (PCR) (Not Detectd) RSV (PCR) (Not Detectd) SARS-CoV-2 (PCR) (Not Detectd) 02/04/23 02/04/23 02/04/23 Range/Units 16:19 16:19 16:19 WBC (3.8-10.6) k/uL RBC (4.30-5.90) m/uL Hgb (13.0-17.5) gm/dL Hct (39.0-53.0) % MCV (80.0-100.0) fL MCH (25.0-35.0) pg MCHC (31.0-37.0) g/dL RDW (11.5-15.5) % Plt Count (150-450) k/uL MPV Neutrophils % % Lymphocytes % % Monocytes % % Eosinophils % % Basophils % % Neutrophils # (1.3-7.7) k/uL Lymphocytes # (1.0-4.8) k/uL Monocytes # (0-1.0) k/uL Eosinophils # (0-0.7) k/uL Basophils # (0-0.2) k/uL PT (9.0-12.0) sec INR (<1.2) APTT (22.0-30.0) sec D-Dimer (<0.60) mg/L FEU Sodium 138 (137-145) mmol/L Potassium 4.2 (3.5-5.1) mmol/L Chloride 102 (98-107) mmol/L Carbon Dioxide 22 (22-30) mmol/L Anion Gap 14 mmol/L BUN 13 (9-20) mg/dL Creatinine 0.74 (0.66-1.25) mg/dL Est GFR (CKD-EPI)AfAm >90 (>60 ml/min/1.73 sqM) Est GFR (CKD-EPI)NonAf >90 (>60 ml/min/1.73 sqM) Glucose 97 (74-99) mg/dL Calcium 9.3 (8.4-10.2) mg/dL Total Bilirubin 2.2 H (0.2-1.3) mg/dL AST 26 (17-59) U/L ALT 25 (4-49) U/L Alkaline Phosphatase 109 (38-126) U/L Troponin I <0.012 (0.000-0.034) ng/mL Total Protein 8.5 H (6.3-8.2) g/dL Albumin 4.8 (3.5-5.0) g/dL Urine Color Urine Appearance (Clear) Urine pH (5.0-8.0) Ur Specific [place] (1.001-1.035) Urine Protein (Negative) Urine Glucose (UA) (Negative) Urine Ketones (Negative) Urine Blood (Negative) Urine Nitrite (Negative) Urine Bilirubin (Negative) Urine Urobilinogen (<2.0) mg/dL Ur Leukocyte Esterase (Negative) Urine RBC (0-5) /hpf Urine WBC (0-5) /hpf Urine Opiates Screen (NotDetected) Ur Oxycodone Screen (NotDetected) Urine Methadone Screen (NotDetected) Ur Propoxyphene Screen (NotDetected) Ur Barbiturates Screen (NotDetected) U Tricyclic Antidepress (NotDetected) Ur Phencyclidine Scrn (NotDetected) Ur Amphetamines Screen (NotDetected) U Methamphetamines Scrn (NotDetected) U Benzodiazepines Scrn (NotDetected) Urine Cocaine Screen (NotDetected) U Marijuana (THC) Screen (NotDetected) Serum Alcohol <10 mg/dL Influenza Type A (PCR) Not Detected (Not Detectd) Influenza Type B (PCR) Not Detected (Not Detectd) RSV (PCR) Not Detected (Not Detectd) SARS-CoV-2 (PCR) Not Detected (Not Detectd) 02/04/23 Range/Units 16:19 WBC (3.8-10.6) k/uL RBC (4.30-5.90) m/uL Hgb (13.0-17.5) gm/dL Hct (39.0-53.0) % MCV (80.0-100.0) fL MCH (25.0-35.0) pg MCHC (31.0-37.0) g/dL RDW (11.5-15.5) % Plt Count (150-450) k/uL MPV Neutrophils % % Lymphocytes % % Monocytes % % Eosinophils % % Basophils % % Neutrophils # (1.3-7.7) k/uL Lymphocytes # (1.0-4.8) k/uL Monocytes # (0-1.0) k/uL Eosinophils # (0-0.7) k/uL Basophils # (0-0.2) k/uL PT (9.0-12.0) sec INR (<1.2) APTT (22.0-30.0) sec D-Dimer (<0.60) mg/L FEU Sodium (137-145) mmol/L Potassium (3.5-5.1) mmol/L Chloride (98-107) mmol/L Carbon Dioxide (22-30) mmol/L Anion Gap mmol/L BUN (9-20) mg/dL Creatinine (0.66-1.25) mg/dL Est GFR (CKD-EPI)AfAm (>60 ml/min/1.73 sqM) Est GFR (CKD-EPI)NonAf (>60 ml/min/1.73 sqM) Glucose (74-99) mg/dL Calcium (8.4-10.2) mg/dL Total Bilirubin (0.2-1.3) mg/dL AST (17-59) U/L ALT (4-49) U/L Alkaline Phosphatase (38-126) U/L Troponin I (0.000-0.034) ng/mL Total Protein (6.3-8.2) g/dL Albumin (3.5-5.0) g/dL Urine Color Yellow Urine Appearance Clear (Clear) Urine pH 8.0 (5.0-8.0) Ur Specific [place] 1.036 H (1.001-1.035) Urine Protein 1+ H (Negative) Urine Glucose (UA) Negative (Negative) Urine Ketones 2+ H (Negative) Urine Blood Negative (Negative) Urine Nitrite Negative (Negative) Urine Bilirubin Negative (Negative) Urine Urobilinogen 4.0 (<2.0) mg/dL Ur Leukocyte Esterase Negative (Negative) Urine RBC 2 (0-5) /hpf Urine WBC 1 (0-5) /hpf Urine Opiates Screen (NotDetected) Ur Oxycodone Screen (NotDetected) Urine Methadone Screen (NotDetected) Ur Propoxyphene Screen (NotDetected) Ur Barbiturates Screen (NotDetected) U Tricyclic Antidepress (NotDetected) Ur Phencyclidine Scrn (NotDetected) Ur Amphetamines Screen (NotDetected) U Methamphetamines Scrn (NotDetected) U Benzodiazepines Scrn (NotDetected) Urine Cocaine Screen (NotDetected) U Marijuana (THC) Screen (NotDetected) Serum Alcohol mg/dL Influenza Type A (PCR) (Not Detectd) Influenza Type B (PCR) (Not Detectd) RSV (PCR) (Not Detectd) SARS-CoV-2 (PCR) (Not Detectd) Disposition Time of Disposition: 19:29 <Maria L Wright - Last Filed: 02/04/23 20:38> Is patient prescribed a controlled substance at d/c from ED?: No <Roselyn Wilson - Last Filed: 02/04/23 21:34> Clinical Impression: Methamphetamine abuse, Urinary hesitancy Disposition: ADMITTED IP TO THIS HOSP Condition: Fair Instructions (If sedation given, give patient instructions): Methamphetamine Abuse (ED) Additional Instructions: It is important to stop using drugs which can be fatal causing . Take medication as directed. Please follow-up with your primary care provider in 1-2 days. Return to the emergency department if you experience new, concerning, or worsening symptoms. Referrals: Francisco Wynn DO [Primary Care Provider] - 1-2 days
[2023-02-04 16:36] LABS: Basophils % (A) 0 %; Eosinophils # (A) 0.1 k/uL (0-0.7); Eosinophils % (A) 1 %; HCT 51.1 % (39.0-53.0); HGB 17.9 gm/dL (13.0-17.5); Lymphocytes # (A) 1.2 k/uL (1.0-4.8); Lymphocytes % (A) 13 %; MCV 88.4 fL (80.0-100.0); Mean Platelet Volume 7.3; Monocytes # (A) 0.5 k/uL (0-1.0); Monocytes % (A) 6 %; Neutrophils # (A) 6.9 k/uL (1.3-7.7); Neutrophils % (A) 78 %; Platelet Count 283 k/uL (150-450); RBC 5.78 m/uL (4.30-5.90); RDW 12.8 % (11.5-15.5); WBC 8.9 k/uL (3.8-10.6)
[2023-02-04 16:51] LABS: INR 1.2 (<1.2); Partial Thromboplastin Time 26.9 sec (22.0-30.0); Prothrombin Time 12.5 sec (9.0-12.0)
[2023-02-04 16:52] LABS: ALT 25 U/L (4-49); AST 26 U/L (17-59); African American GFR (CKD) >90 (>60 ml/min/1.73 sqM); Albumin 4.8 g/dL (3.5-5.0); Alcohol <10 mg/dL; Alkaline Phosphatase 109 U/L (38-126); Anion Gap 14 mmol/L; Blood Urea Nitrogen 13 mg/dL (9-20); Calcium 9.3 mg/dL (8.4-10.2); Carbon Dioxide 22 mmol/L (22-30); Chloride 102 mmol/L (98-107); Glucose 97 mg/dL (74-99); Non-African American GFR(CKD) >90 (>60 ml/min/1.73 sqM); Potassium 4.2 mmol/L (3.5-5.1); Sodium 138 mmol/L (137-145); Total Bilirubin 2.2 mg/dL (0.2-1.3); Total Protein 8.5 g/dL (6.3-8.2)
[2023-02-04 17:17] LABS: Appearance,Urine Clear (Clear); Bilirubin,Urine Negative (Negative); Blood,Urine Negative (Negative); Color,Urine Yellow; Glucose,Urine (UA) Negative (Negative); Ketones,Urine 2+ (Negative); Leukocyte Esterase,Urine Negative (Negative); Nitrite,Urine Negative (Negative); Protein,Urine 1+ (Negative); RBC,Urine 2 /hpf (0-5); Specific Gravity,Urine 1.036 (1.001-1.035); WBC,Urine 1 /hpf (0-5)
[2023-02-04 17:27] LABS: Amphetamine Screen,Urine Detected (NotDetected); Barbiturate Screen,Urine Not Detected (NotDetected); Benzodiazepines Screen,Urine Detected (NotDetected); Cocaine Screen,Urine Not Detected (NotDetected); Methadone Screen, Urine Not Detected (NotDetected); Opiate Screen,Urine Detected (NotDetected); Oxycodone Screen, Urine Not Detected (NotDetected); Phencyclidine Screen,Urine Not Detected (NotDetected); Tricyclic Antidepressant,Urine Not Detected (NotDetected); Urn Cannabinoid Scrn Not Detected (NotDetected)
--- NOTE | 2023-02-04 17:30 | XR ---
EXAMINATION TYPE: XR chest 2V DATE OF EXAM: 02/04/2023 5:26 PM COMPARISON: Chest radiographs from 02/04/2023 TECHNIQUE: XR chest 2V Frontal and lateral views of the chest. CLINICAL INDICATION:Male, 42 years old with history of chest pain; FINDINGS: Lungs/Pleura: Low lung volumes are present. There is no evidence of pleural effusion, focal consolida tion, or pneumothorax. Pulmonary vascularity: Unremarkable. Heart/mediastinum: Cardiomediastinal silhouette is unremarkable. Musculoskeletal: No acute osseous pathology. IMPRESSION: Low lung volumes with a generalized hazy appearance which is favored to represent atelectasis.
[2023-02-04] MEDS ORDERED: TAMSULOSIN 0.4 MG CAP.ER.24H PO STA (18:44)
[2023-02-04] MEDS ORDERED: ACETAMINOPHEN TAB 325 MG TAB PO STA (18:45)
[2023-02-04] MEDS ORDERED: LOSARTAN 25 MG TAB PO STA (18:45)
[2023-02-04 21:41] VITALS: BP 134/99; PULSE 98; RESP 16
== END 2023-02-04 21:50 | disposition other institution (70) ==
LOC: EC 14:25
DX: F15.10 Other stimulant abuse, uncomplicated (principal); R39.11 Hesitancy of micturition; I10 Essential (primary) hypertension; F41.9 Anxiety disorder, unspecified; F17.290 Nicotine dependence, other tobacco product, uncomplicated; Z79.899 Other long term (current) drug therapy; Z88.8 Allergy status to other drugs, medicaments and biological substances; Z20.822 Contact with and (suspected) exposure to COVID-19
CPT/HCPCS: 36415; 93005; 85379; 80053; 84484; 85025; 85610; 85730; 81001; 80306; 80320; 87636; 71046; 99285; 96374; 96376; 96361; J2060